=== PATIENT | female | born 1970 | race Caucasian/White ===

== ENCOUNTER 2022-12-24 13:54 | Outpatient (CLI) | payer OTHER, SELFPAY ==
--- NOTE | ~2022-12-24 | XR_ITS ---
Right elbow Technique: AP, oblique, and lateral views were obtained. Clinical History: Pain Findings: No acute fracture or dislocation is seen. Osseous alignment is anatomic. Joint spaces are p reserved. There is no displacement of the fat pads, and soft tissues are unremarkable. Impression: Unremarkable radiographs. Reviewed, dictated and finalized at [facility]. WRAPPER Impression: Unremarkable radiographs.
== END 2022-12-24 13:55 | disposition home or self-care (01) ==
PROVIDERS: PCP Nurse Practitioner
DX: M25.521 Pain in right elbow (principal)
CPT/HCPCS: 73080

== ENCOUNTER 2023-01-28 11:15 | Outpatient (RCR) | payer OTHER, SELFPAY ==
--- NOTE | 2022-12-29 16:50 | PTOPEVAL1 ---
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 States has to be on the computer a lot Bending arm is very painful, straight is less painful than bent. Has had a steroid shot previously that lasted 2 months Reports work environment was previously using a laptop without mouse and now has a mouse and is trying to use left hand on mouse to give right arm a brake Reported Pain Level Pain Score 2: Self Report Assessment PT Clinical Summary Pt presents with c/o right elbow pain states began in June of 2022. Reports she works from home on a laptop without a mouse and has recently corrected this. She also had a steroid shot that helped for 2 months but the pain has returned. Today she demo's increased resting muscle tone and density as noted above and decreased strength of the right lower arm. Pt was educated on additional changes to make to her work space, durable medical equipment and cryotherapy to assist in efficiency of recovery. Pt will benefit from therapy in order to address deficits, reduce pain, and return to prior level of function. Plan of Care Interventions Electrical Stimulation,Hot Pack/Cold Pack,Manual Therapy,Neuro Re-education,Paraffin Bath,Patient/ Caregiver Educati,Therapeutic Activities, Therapeutic Exercise,Self-Care/Home Management, Ultrasound PT Services Indicated Yes Treatment Frequency and 1-2x weekly x 6 weeks Duration These treatments will address the objective and functional deficits as defined above. The patient will be advanced safely and appropriately in order for the patient to progress towards his/her prior level of function. Additional exercises will be introduced and as well as a comprehensive home exercise program upon discharge, if needed, ?to ensure carryover of functional gains achieved in the clinic. This treatment plan has been reviewed and agreement upon by the patient.
--- NOTE | 2023-01-28 14:04 | PTOPDC ---
Assessment and note entered by Celine Wright, PT Assessment Status Discharge Diagnosis right epicondylitis Onset 09/18/22 Subjective Information Pt states she does not feel she has improved any since starting therapy. She has attempted to use the arm brace and this is minimally effective sometimes Reported Pain Level Pain Score 4: Self Report Assessment PT Clinical Summary Pt reports feeling no improvement since initiating therapy 4 weeks ago. She shows improvement in strength testing, and continued approrpiate ROM. Cont to demo adhesions and tone as noted above. However, subjective reports of pain show increased pain compared to evaluation date. Thus patient is being discharged from therapy services to pursue additional treatment through provider.
== END 2023-01-29 10:00 | disposition home or self-care (01) ==
LOC: ANHHIPT 11:15
PROVIDERS: PCP Nurse Practitioner; Visit Provider Internal Medicine Rheumatology
DX: M77.01 Medial epicondylitis, right elbow (principal)
CPT/HCPCS: 97014; 97032; 97035; 97110; 97140; 97161; G0283

== ENCOUNTER 2023-02-13 00:24 | Day surgery (SDC) | payer OTHER, SELFPAY ==
[2023-02-05 15:14] VITALS: BMI 21.5
--- NOTE | 2023-02-12 17:10 | PM.HPGS ---
History of Present Illness History of Present Illness Consent: Risks, benefits, and alternatives have been discussed and questions answered. Patient agrees to proceed with procedure. Chief complaint: neoplasm screening Narrative: Gabe Rodríguez is a 52 year old female Referred for colon cancer screening. Review of Systems Review of Systems: All systems reviewed & are unremarkable except as noted in HPI and below PMFSH Past Medical History Medical History History of endometrial biopsy (05/13/07) hscope EMB HSV-2 seropositive Migraines Miscarriage (03/11/02) Recurrent cold sores Rheumatoid arthritis Shingles Uterine fibroid Vaginal discharge Surgical History Surgical History History of adenoidectomy History of bladder suspension procedure (~2008) History of 1988 2002 History of dilation and curettage (03/11/02) suction d&c--miscarriage History of elbow surgery (~2010) secondary to RA History of endometrial ablation (05/27/07) hscope endometrial ablation--dysmenorrhea/menometrorrhagia History of tubal ligation (~2002) Family History Family History Father Hypertension Mother Hypertension Other Colon polyp maternal aunt Social History Social History Smoking status: Never smoker Alcohol intake: current Drinks per week: 5 Substance use: never Substance use type: does not use Living arrangements: with family Additional living arrangements comments: Occupation/Education: occupation Additional occupation/education comments: real estate Gender identity (if verbalized by the patient): Female Sexual Orientation (if Verbalized by the Patient): Straight or Heterosexual Spiritual care concerns: No Meds Home Medications and Allergies Home Medications Medication Instructions Recorded Confirmed Type acyclovir 400 mg tablet 400 mg PO DAILY PRN other 03/04/22 02/13/23 History adalimumab 40 mg/0.8 mL 40 mg subcut WEEKLY 03/04/22 02/13/23 History subcutaneous syringe kit (Humira) methotrexate sodium 2.5 mg tablet 15 mg PO WEEKLY 03/04/22 02/13/23 History sumatriptan succinate 50 mg tablet 50 mg PO DAILY PRN Migraine 03/04/22 02/13/23 History Headache topiramate 50 mg tablet 50 mg PO DAILY 02/05/23 02/13/23 History Allergies Allergy/AdvReac Type Severity Reaction Status Date / Time adhesive tape AdvReac Other Verified 02/13/23 07:44 Exam Const: General: alert Orientation/consciousness: patient oriented x3 Resp: Auscultation: clear to auscultation bilaterally Cardio: Rhythm: regular rhythm GI: GI Palp: Yes Soft to palpation and No Tenderness to palpation present (GI) Neuro: General: patient oriented x3 Assessment and Plan Assessment and plan (1) Colon cancer screening: Code(s): Z12.11 - Encounter for screening for malignant neoplasm of colon Status: Acute Assessment and Plan: Colonoscopy with possible biopsy or polypectomy or cautery or injection of substances.
[2023-02-13 07:45] VITALS: BP 122/88; PULSE 65; RESP 18; TEMP 36.8; O2SAT 100; BMI 21.7
[2023-02-13] MEDS: LACTATED RINGERS 1,000 ML 150 ML IV CONT (07:57)
--- NOTE | 2023-02-13 08:09 | WPDANESEPPF ---
Anes - Initial Pre Proc Eval Procedure: Operation Date: 02/13/23 08:30 Proposed Procedures p Screening Colonoscopy - Candido Tran MD Date/Time: 02/13/23 08:09 Surgeon: Candido Tran MD Pre Op Diagnosis: neoplasm screening Patient Data Age: 52 Gender: F Height: 1.65 m Weight: 59.3 kg Last Vital Signs Temp 98.3 F 02/13/23 07:45 Pulse 65 02/13/23 07:45 Resp 18 02/13/23 07:45 BP 122/88 02/13/23 07:45 Pulse Ox 100 02/13/23 07:45 O2 Del Method Room Air 02/13/23 07:45 Allergies Allergy/AdvReac Type Severity Reaction Status Date / Time adhesive tape AdvReac Other Verified 02/13/23 07:44 Home Medications Medication Instructions Recorded Confirmed Type acyclovir 400 mg tablet 400 mg PO DAILY PRN other 03/04/22 02/13/23 History adalimumab 40 mg/0.8 mL 40 mg subcut WEEKLY 03/04/22 02/13/23 History subcutaneous syringe kit (Humira) methotrexate sodium 2.5 mg tablet 15 mg PO WEEKLY 03/04/22 02/13/23 History sumatriptan succinate 50 mg tablet 50 mg PO DAILY PRN Migraine 03/04/22 02/13/23 History Headache topiramate 50 mg tablet 50 mg PO DAILY 02/05/23 02/13/23 History Patient hx anesthesia problems: none Family hx anesthesia problems: none Results Review: All pre-operative results and documents have been reviewed as part of the pre-operative evaluation. [facility] Past Medical History Medical History History of endometrial biopsy (05/13/07) hscope EMB HSV-2 seropositive Migraines Miscarriage (03/11/02) Recurrent cold sores Rheumatoid arthritis Shingles Uterine fibroid Vaginal discharge Surgical History Surgical History History of adenoidectomy History of bladder suspension procedure (~2008) History of 1988 2002 History of dilation and curettage (03/11/02) suction d&c--miscarriage History of elbow surgery (~2010) secondary to RA History of endometrial ablation (05/27/07) hscope endometrial ablation--dysmenorrhea/menometrorrhagia History of tubal ligation (~2002) Family History Family History Father Hypertension Mother Hypertension Other Colon polyp maternal aunt Social History Social History Smoking status: Never smoker Alcohol intake: current Drinks per week: 5 Substance use: never Substance use type: does not use Living arrangements: with family Additional living arrangements comments: Occupation/Education: occupation Additional occupation/education comments: real estate Gender identity (if verbalized by the patient): Female Sexual Orientation (if Verbalized by the Patient): Straight or Heterosexual Spiritual care concerns: No Anes - Eval Final PreProcedure Day of Procedure 02/13/23 08:09 Patient weight: normal Heart: regular rate and rhythm Lungs: clear to auscultation Airway: Mallampati scale class II Neurological: alert and oriented Last oral intake: >/= 8 hours ASA classification: II Emergent: no Anesthetic plan: proceed Anesthesia type and monitoring: general GIVS and standard monitoring Results Review: All pre-operative results and documents have been reviewed as part of the pre-operative evaluation. Informed Consent: The patient's anesthetic plan and its attendant risks and benefits were discussed with the patient/family/POA. Questions were solicited and answers provided to the satisfaction of the patient/family/POA.
[2023-02-13 08:40] VITALS: BP 105/63; PULSE 72; RESP 12; O2SAT 100
[2023-02-13 08:50] VITALS: BP 111/74; PULSE 65; RESP 20; O2SAT 100
[2023-02-13 09:00] VITALS: BP 119/69; PULSE 63; RESP 20; O2SAT 100
== END 2023-02-13 09:23 | disposition home or self-care (01) ==
PROVIDERS: PCP Nurse Practitioner; Visit Provider Internal Medicine Gastroenterology
PROC: 0DJD8ZZ Inspection of Lower Intestinal Tract, Via Natural or Artificial Opening Endoscopic (ICD-10-PCS; CPT 45378; principal; 2023-02-13 08:30)
DX: Z12.11 Encounter for screening for malignant neoplasm of colon (principal); M06.9 Rheumatoid arthritis, unspecified; Z79.620 Long term (current) use of immunosuppressive biologic; Z79.631 Long term (current) use of antimetabolite agent
CPT/HCPCS: 45378; J2704; J7120

== ENCOUNTER 2023-05-26 15:07 | Outpatient (CLI) | payer OTHER, SELFPAY ==
[2023-05-26 15:55] LABS: Alanine Aminotransferase 19 U/L (6-35); Albumin Level 4.6 g/dL (3.5-5.1); Alkaline Phosphatase 60 U/L (38-126); Anion Gap 8 mmol/L (8-16); Aspartate Amino Transferase 27 U/L (14-36); Bilirubin,Total 0.6 mg/dL (0.2-1.3); Blood Urea Nitrogen 16 mg/dL (7-17); Calcium 9.4 mg/dL (8.4-10.2); Carbon Dioxide 20 mmol/L (22-30); Chloride 107 mmol/L (98-107); Estimated Glomerular Filt Rate 59; Glucose 95 mg/dL (65-110); Potassium 3.8 mmol/L (3.4-5.0); Sodium 135 mmol/L (137-145)
== END 2023-05-26 15:08 | disposition home or self-care (01) ==
PROVIDERS: PCP Nurse Practitioner; Visit Provider Internal Medicine Rheumatology
DX: E55.9 Vitamin D deficiency, unspecified (principal); Z79.899 Other long term (current) drug therapy
CPT/HCPCS: 36415; 80053; 82306

== ENCOUNTER 2023-08-31 14:30 | Outpatient (RCR) | payer OTHER, SELFPAY ==
--- NOTE | 2023-07-31 10:25 | OPREHPOC ---
Outpatient Therapy Plan of Care This is a Multidisciplinary Plan of Care that may contain components documented by all disciplines (PT, OT, and ST.) PT Problem 1 PT Problem #1 Knowledge Deficit PT Goal 1 Goal Patient will be independent with HEP for core progression Target Visit 4 PT Problem 2 PT Problem #2 Pain PT Goal 1 Goal Patient will report 0/10 pain after sitting greater than 10 minutes Target Visit 8 PT Problem 3 PT Problem #3 Impaired Strength PT Goal 1 Goal Patient will improve justine hip abduction strength to 4/5 to improve lateral stability with gait and functional lifting Target Visit 8 PT Goal 2 Goal Patient will improve justine hip flexion strength to 4 +/5 to improve foot clearance with activity Target Visit 8 PT Problem 4 PT Problem #4 Impaired Gait PT Goal 1 Goal Patient will ambulate with absence of Trendelenburg for long distance walking indicating improved conscious awareness of muscle activation Target Visit 8
--- NOTE | 2023-07-31 10:26 | PTOPEVAL1 ---
Assessment and note entered by Yasmany Julian, PT Evaluation Information Assessment Status Evaluation Diagnosis Chronic midline low back pain, hip weakness, altered gait Onset 2018 Subjective Information Reports that she is getting most of her pain on the backside of her left hip. Says that it feels muscular in nature because she feels she can stretch it. Hurts worse when sitting for a while or riding in the car. Has pain with lifting but pain is mostly sporadic. Sometimes leg will feel numb but not painful. She does have some tailbone pain. She is R handed. Spends a lot of time at this [place]. Feels her left leg is weaker. Assessment PT Clinical Summary Patient has signs and symptoms consistent with lumbar discogenic type symptoms. She has significant hip weakness and difficulty with hip/ lumbar disassociation increasing lumbar strain with ADLs. She will benefit from skilled therapy to establish core progression program and and hip strengthening fro gross functional stability and ADL improvement without pain. Plan of Care Interventions Electrical Stimulation,Gait Training,Manual Therapy,Mechanical Traction,Neuro Re-education, Patient/Caregiver Education,Therapeutic Activities, Therapeutic Exercise PT Services Indicated Yes Treatment Frequency and 2x/week for 4 weeks Duration These treatments will address the objective and functional deficits as defined above. The patient will be advanced safely and appropriately in order for the patient to progress towards his/her prior level of function. Additional exercises will be introduced and as well as a comprehensive home exercise program upon discharge, if needed, ?to ensure carryover of functional gains achieved in the clinic. This treatment plan has been reviewed and agreement upon by the patient.
--- NOTE | 2023-08-31 15:24 | PTOPDC ---
Assessment and note entered by Celine Wright, PT Assessment Status Discharge Diagnosis Chronic midline low back pain, hip weakness, altered gait Onset 2017 Subjective Information Pt went on a car ride 3.5 hours nd didn't get numb-butt , didn't have to stretch and reposition on the car ride. Didn't really have any pain on the car ride either. States is still there but knows what to do with her exercises. Self-percieved improvement: 65% improved Reports has not had lfet leg numbness recently. States feels lef leg is getting stronger, may still be a little weaker but better than it was. Has her heel lifts and are currently in her shoes Is also more awareness of her posture and core with sitting Reported Pain Level Pain Score 1: Self Report Assessment PT Clinical Summary Pt has attended therapy consistently for left hip/ low back pain. She reports feeling 65% improved overall with the only remaining complaint of residual left hip tightness. Pt reports she feels stronger on her LLE and shows nearly equal strength in testing, demos equal ROM BLE with exception of hip extension (not related to strength deficit). She reports pain ranging from 0 -2/10 at worst and improved ability to sit in a car without symptoms. Pt has met all her therapy goals thus is being doscharged at this time. Plan of Care PT Services Indicated No
== END 2023-08-31 15:29 | disposition home or self-care (01) ==
LOC: ANHHIPT 14:30
PROVIDERS: PCP Nurse Practitioner; Visit Provider Internal Medicine Rheumatology
DX: M54.50 Low back pain, unspecified (principal); G89.29 Other chronic pain
CPT/HCPCS: 97110; 97112; 97140; 97161; 97750

== ENCOUNTER 2023-09-04 12:14 | Outpatient (CLI) | payer OTHER, SELFPAY ==
[2023-09-04 12:50] LABS: Basophils Percent Auto 0.2 % (0.2-1.2); Eosinophils Percent Auto 0.3 % (0-4.4); Hematocrit 40.8 % (37.0-47.0); Hemoglobin 13.3 g/dL (12.0-15.0); Immature Granulocyte Absolute 0.06 K/mm3 (0.00-0.031); Immature Granulocyte Percent A 0.6 % (0-0.5); Lymphocytes Absolute Auto 2.11 K/mm3 (0.9-3.2); Lymphocytes Percent Auto 20.6 % (18.3-44.2); Mean Corpuscular HGB Conc 32.6 g/dl (32-36); Mean Corpuscular Hemoglobin 33.2 pg (26-34); Mean Corpuscular Volume 101.7 fl (80-100); Mean Platelet Volume 10.7 fl (7.4-10.4); Monocytes Absolute Auto 0.7 K/mm3 (0.1-0.6); Monocytes Percent Auto 6.9 % (2.6-8.5); Neutrophils Absolute Auto 7.3 K/mm3 (1.3-6.7); Neutrophils Percent Auto 71.4 % (45.5-73.1); Platelet Count Result 265 k/mm3 (150-375); Red Blood Count 4.01 M/mm3 (4.2-5.4); Red Cell Distribution Width 14.8 % (11.5-14.5); White Blood Count 10.3 K/mm3 (4.5-10.0)
[2023-09-04 12:57] LABS: Creatinine Urine 25.3 mg/dL
[2023-09-04 13:04] LABS: Alanine Aminotransferase 19 U/L (6-35); Albumin Level 4.6 g/dL (3.5-5.1); Alkaline Phosphatase 59 U/L (38-126); Aspartate Amino Transferase 34 U/L (14-36); Bilirubin,Total 0.8 mg/dL (0.2-1.3)
[2023-09-04 13:20] LABS: Vitamin D 25 Hydroxy 62.6 ng/mL
== END 2023-09-04 12:15 | disposition home or self-care (01) ==
PROVIDERS: PCP Nurse Practitioner; Visit Provider Internal Medicine Rheumatology
DX: E67.3 Hypervitaminosis D (principal); Z79.899 Other long term (current) drug therapy
CPT/HCPCS: 36415; 80076; 82306; 82570; 85025

== ENCOUNTER → 2023-12-24 10:12 | Outpatient (CLI) | payer OTHER, SELFPAY ==
--- NOTE | ~2023-12-24 | MM_ITS ---
EXAMINATION: MM screening uriah BI w simi HISTORY: Screening TECHNIQUE: Craniocaudal and mediolateral oblique 3-D tomosynthesis images were obtained and synthetic 2-D images were generated. CAD analysis was submitted and interpreted. COMPARISON: No prior mammogram is available for comparison at this institution. BREAST PARENCHYMAL COMPOSITION: Dense: The breasts are heterogeneously dense, which may obscure small masses FINDINGS: There are scattered bilateral breast asymmetries. There are no suspicious calcifications. N o discrete architectural distortion. IMPRESSION: 1. Bilateral breast asymmetries. 2. Recommend comparison to previous outside mammograms. BI-RADS Category 0: Incomplete: Needs additional imaging evaluation. Reviewed, dictated and finalized at location [facility]
== END ==
PROVIDERS: PCP Advanced Practice Midwife; Visit Provider Advanced Practice Midwife
DX: Z12.31 Encounter for screening mammogram for malignant neoplasm of breast (principal); R92.8 Other abnormal and inconclusive findings on diagnostic imaging of breast
CPT/HCPCS: 77063; 77067

== ENCOUNTER 2024-01-25 14:19 | Outpatient (CLI) | payer OTHER, SELFPAY ==
--- NOTE | ~2024-01-25 | MMUS_ITS ---
EXAMINATION: MM diagnostic uriah BI w simi, US breast BI complete HISTORY: Follow-up bilateral breast asymmetries TECHNIQUE: Additional 3-D tomosynthesis images of the breasts were performed and synthetic 2-D images were generated. CAD analysis was submitted and interpreted. High resolution bilateral complete breas t ultrasound was performed. COMPARISON: Comparison to multiple prior studies sequentially, with oldest reviewed study dated 01/2022. BREAST PARENCHYMAL COMPOSITION: Dense: The breasts are heterogeneously dense, which may obscure small masses FINDINGS: MAMMOGRAPHIC FINDINGS: There are persistent bilateral breast asymmetries in both breasts particularly in the upper outer bryn drant of both breasts, without discrete mass. There are no focal areas of architectural distortion or suspicious calcifications. ULTRASOUND: Complete bilateral US of all 4 quadrants of the breasts and retroareolar region was reviewed. Right breast: At 10:00, 4 cm from the nipple there is a 4 mm cyst. No other discrete mass identified in the right breast to suggest malignancy. Left breast: At 12:00 near the areola there is an 8 mm cyst. Also at 12:00 near the areola there is a n oval hypoechoic mass measuring 5 mm with parallel orientation, no internal vascularity and no poste rior features. At 1:00, 6 cm from the nipple there is an irregular shaped hypoechoic mass measuring 8 mm which appears solid, no posterior features and no internal vascularity. Also at 1:00, 6 cm from t he nipple there is a 6 mm cyst. At 1:00, 6 cm from the nipple there is an oval slightly irregular sha ped hypoechoic mass measuring 4 mm without internal vascularity or posterior features. There are mult iple additional cysts of the left breast. IMPRESSION: 1. Irregular shaped hypoechoic left breast mass at 1:00, 6 cm from the nipple. Multiple additional le ft breast masses are identified which are likely benign. 2. Ultrasound-guided left breast biopsy of mass at 1:00, 6 cm from the nipple recommended. 6 month fo llow-up left breast ultrasound recommended for surveillance of additional likely benign left breast m asses. BI-RADS category 4, suspicious findings. Reviewed, dictated and finalized at location [facility]. IMPRESSION: 1. Irregular shaped hypoechoic left breast mass at 1:00, 6 cm from the nipple. Multiple additional left breast masses are identified which are likely benign. 2. Ultrasound-guided left breast biopsy of mass at 1:00, 6 cm from the nipple r ecommended. 6 month follow-up left breast ultrasound recommended for surveillan ce of additional likely benign left breast masses. BI-RADS category 4, suspicious findings.
== END 2024-01-25 14:20 ==
PROVIDERS: PCP Nurse Practitioner; Visit Provider Obstetrics & Gynecology Gynecology
DX: R92.8 Other abnormal and inconclusive findings on diagnostic imaging of breast (principal)
CPT/HCPCS: 76641; 77062; 77066; G0279

== ENCOUNTER 2024-03-23 08:33 | Outpatient (CLI) | payer OTHER, SELFPAY ==
--- NOTE | ~2024-03-23 | MMUS_ITS ---
MM post biopsy invasive LT, US breast biopsy LT w image EXAMINATION: US GUIDED NEEDLE BIOPSY WITH VACUUM ASSISTANCE DATE: 03/23/2024 09:56 CDT INDICATION: Left breast mass seen on prior examination. Ultrasound-guided core biopsy is requested t o evaluate for malignancy. TECHNIQUE AND FINDINGS: The risks and potential benefits of the procedure were discussed with the patient, and written inform ed consent was obtained. After sterile preparation of the left breast, 1% lidocaine was utilized for local anesthesia. 1% lidocaine with epinephrine was used for deep anesthesia. A 10G vacuum-assisted biopsy gun needle was advanced through to the outer edge of the region of inter est from a superior approach utilizing sonographic guidance. A total of 4 tissue core samples were o btained through the lesion. An Inrad tissue marker clip was then placed at the biopsy site. Hemostas is was achieved. The patient tolerated procedure well and there was no evidence of immediate complication. The patien t was given verbal instructions partly is from the department. Left breast mammograms to document ti ssue marker clip placement. The tissue samples were submitted to surgical pathology for histologic an alysis. IMPRESSION: 1. Successful ultrasound-guided vacuum-assisted biopsy of left breast mass with tissue marker placem ent. Please refer to pathology report for histologic analysis. Reviewed, dictated and finalized at location [facility]. IMPRESSION: 1. Successful ultrasound-guided vacuum-assisted biopsy of left breast mass wit h tissue marker placement. Please refer to pathology report for histologic anal ysis.
== END 2024-03-23 08:34 | disposition home or self-care (01) ==
PROVIDERS: PCP Nurse Practitioner; Visit Provider Surgery
DX: R92.8 Other abnormal and inconclusive findings on diagnostic imaging of breast (principal); N63.20 Unspecified lump in the left breast, unspecified quadrant
CPT/HCPCS: 19083; 88305; A4648

== ENCOUNTER 2024-04-27 08:00 | Outpatient (RCR) | payer OTHER, SELFPAY ==
--- NOTE | 2024-03-31 14:31 | PTOPEVAL1 ---
Assessment and note entered by Celine Wright, PT Evaluation Information Assessment Status Evaluation Diagnosis cervical muscle pain Therapy conditions abnormal postures cervicalgia weakness Onset 2-3 weeks ago Subjective Information one or two instances in which neck bothered her but always recovered. 2-3 weeks ago had a two day class, was sitting somewhere for two 8 hours days and all of a sudden right side of neck got really tight to where she can't turn it. It has gotten better but can feel it pull. Sleeping is troublesome, has tried replacing pillows and sometimes lays completely flat without pillow No N/T or pain going into arm hurts both way with stretching down and back Looking down at laptop or phone, laying on her back flat Reported Pain Level Pain Score 4: Self Report Assessment PT Clinical Summary Pt presents with complaints of neck pain R>L. States no traumatic event, was sitting two days in a row x 8 hours for a class and this is when her pain started approx 2-3 weeks ago. Pt demo's multi -level alignment deficits with history of leg length discrepancy, abnormal posture with weak postural muscles, scoliotic curvature lumbar, thoracic, and cervical. Pt also demos's multiple areas of increased muscle tone while at rest with tenderness. Pt will benefit from physical therapy to address deficits, improve discomfort, and return to PLOF. Plan of Care Interventions Electrical Stimulation,Gait Training,Hot Pack/Cold Pack,Manual Therapy,Neuro Re-education,Patient/ Caregiver Educati,Therapeutic Activities, Therapeutic Exercise,Ultrasound,Other Other Interventions Taping, dry needling PT Services Indicated Yes Treatment Frequency and 1-2x weekly x 12 visits Duration These treatments will address the objective and functional deficits as defined above. The patient will be advanced safely and appropriately in order for the patient to progress towards his/her prior level of function. Additional exercises will be introduced and as well as a comprehensive home exercise program upon discharge, if needed, ?to ensure carryover of functional gains achieved in the clinic. This treatment plan has been reviewed and agreement upon by the patient.
--- NOTE | 2024-03-31 14:32 | OPREHPOC ---
Outpatient Therapy Plan of Care This is a Multidisciplinary Plan of Care that may contain components documented by all disciplines (PT, OT, and ST.) PT Problem 1 PT Problem #1 Knowledge Deficit PT Goal 1 Goal Knowledge: Pt will be independent in HEP Pt will verbalize understanding of diagnosis and prognosis Target Visit 6 PT Problem 2 PT Problem #2 Pain PT Goal 1 Goal Pt will report lowest pain rating at 0/10 to show improvement in overall discomfort Target Visit 10 PT Goal 2 Goal Pt will report greatest pain level at 3/10 or less to improve ADLs and activities Target Visit 20 PT Problem 3 PT Problem #3 Impaired Functional Mobil PT Goal 1 Goal Pt will demo appropriate postures in therapy session for 50% of the session without cueing. Target Visit 10 PT Goal 2 Goal Pt will report improved ability to maintain postures during work activities to improve discomfort. Target Visit 20 PT Problem 4 PT Problem #4 Impaired Range of Motion PT Goal 1 Goal Pt will demo ROM cervical spine 75% or greater in all planes, equal L/R, without pain
--- NOTE | 2024-04-27 10:39 | PTOPDC ---
Assessment and note entered by Celine Wright, PT Evaluation Information Assessment Status Discharge Diagnosis cervical muscle pain Onset 2-3 weeks ago Subjective Information one or two instances in which neck bothered her but always recovered. 2-3 weeks ago had a two day class, was sitting somewhere for two 8 hours days and all of a sudden right side of neck got really tight to where she can't turn it. It has gotten better but can feel it pull. Sleeping is troublesome, has tried replacing pillows and sometimes lays completely flat without pillow No N/T or pain going into arm hurts both way with stretching down and back Looking down at laptop or phone, laying on her back flat Reported Pain Level Pain Score 0: Self Report Assessment PT Clinical Summary Pt has attended therapy consistently for her neck pain. She reports she has had 0/10 pain for the last 7-10 days, has been doing her exercises, and is pleased with her progress. She has met all therapy goals with exception of increased ROM in all planes, though her range is functional, equal, and pain-free in all planes. She cont to have some increased tonicity of the levator scapula muscles bilaterally though her overall muscle tonicity and guarding has greatly improved. Pt HEP has been updated, and she has been educated on flare ups and when to return to therapy. Pt has completed her program to her satisfaction and is thus being discharged from therapy at this time. Plan of Care PT Services Indicated No
== END 2024-05-04 09:25 | disposition home or self-care (01) ==
LOC: ANHHIPT 08:00
PROVIDERS: PCP Nurse Practitioner; Visit Provider Nurse Practitioner
DX: M54.2 Cervicalgia (principal)
CPT/HCPCS: 97014; 97110; 97140; 97162; 97530; 97750; G0283

== ENCOUNTER 2024-07-22 10:59 | Outpatient (CLI) | payer OTHER, SELFPAY ==
[2024-07-22 11:28] LABS: Basophils Absolute Auto 0.1 K/mm3 (0.0-0.1); Basophils Percent Auto 1.1 % (0.2-1.2); Eosinophils Absolute Auto 0.1 K/mm3 (0-0.3); Eosinophils Percent Auto 1.5 % (0-4.4); Hematocrit 40.5 % (37.0-47.0); Hemoglobin 13.6 g/dL (12.0-15.0); Immature Granulocyte Absolute 0.03 K/mm3 (0.00-0.031); Immature Granulocyte Percent A 0.5 % (0-0.5); Lymphocytes Absolute Auto 1.82 K/mm3 (0.9-3.2); Lymphocytes Percent Auto 27.5 % (18.3-44.2); Mean Corpuscular HGB Conc 33.6 g/dl (32-36); Mean Corpuscular Hemoglobin 35.3 pg (26-34); Mean Corpuscular Volume 105.2 fl (80-100); Mean Platelet Volume 10.6 fl (7.4-10.4); Monocytes Absolute Auto 0.6 K/mm3 (0.1-0.6); Neutrophils Percent Auto 60.4 % (45.5-73.1); Platelet Count Result 231 k/mm3 (150-375); Red Blood Count 3.85 M/mm3 (4.2-5.4); Red Cell Distribution Width 14.6 % (11.5-14.5); White Blood Count 6.6 K/mm3 (4.5-10.0)
[2024-07-22 11:42] LABS: Alanine Aminotransferase 17 U/L (6-35); Albumin Level 4.4 g/dL (3.5-5.1); Alkaline Phosphatase 55 U/L (38-126); Anion Gap 7 mmol/L (4-12); Aspartate Amino Transferase 27 U/L (14-36); Bilirubin,Total 0.4 mg/dL (0.2-1.3); Blood Urea Nitrogen 12 mg/dL (7-17); Calcium 9.6 mg/dL (8.4-10.2); Carbon Dioxide 29 mmol/L (22-30); Chloride 101 mmol/L (98-107); Estimated Glomerular Filt Rate > 60; Glucose 88 mg/dL (65-110); Potassium 4.2 mmol/L (3.4-5.0); Sodium 137 mmol/L (137-145)
[2024-07-22 12:04] LABS: Hypochromasia 1+; Macrocytosis 2+ (NORMAL); Platelet Estimate Adequate (Adequate); Schistocytes None Seen
== END 2024-07-22 11:00 | disposition home or self-care (01) ==
LOC: ANHLAB 11:01
PROVIDERS: PCP Nurse Practitioner; Visit Provider Internal Medicine Rheumatology
DX: Z79.899 Other long term (current) drug therapy (principal)
CPT/HCPCS: 36415; 80053; 85025

== ENCOUNTER 2024-09-14 09:09 | Outpatient (CLI) | payer OTHER, SELFPAY ==
[2024-09-14 10:11] LABS: Alanine Aminotransferase 22 U/L (6-35); Albumin Level 4.4 g/dL (3.5-5.1); Alkaline Phosphatase 60 U/L (38-126); Anion Gap 4 mmol/L (4-12); Aspartate Amino Transferase 32 U/L (14-36); Bilirubin,Total 0.9 mg/dL (0.2-1.3); Blood Urea Nitrogen 9 mg/dL (7-17); Calcium 8.9 mg/dL (8.4-10.2); Carbon Dioxide 29 mmol/L (22-30); Chloride 103 mmol/L (98-107); Estimated Glomerular Filt Rate > 60; Glucose 79 mg/dL (65-110); Sodium 136 mmol/L (137-145)
[2024-09-14 10:43] LABS: Hemoglobin A1C 5.1 % (<5.7)
[2024-09-14 11:47] LABS: Vitamin D 25 Hydroxy 63.7 ng/mL
== END 2024-09-14 09:10 | disposition home or self-care (01) ==
LOC: ANHLAB 09:11
PROVIDERS: PCP Nurse Practitioner; Visit Provider Obstetrics & Gynecology Gynecology
DX: B37.32 Chronic candidiasis of vulva and vagina (principal)
CPT/HCPCS: 36415; 80053; 82306; 83036

== ENCOUNTER 2024-09-19 10:10 | Outpatient (CLI) | payer OTHER, SELFPAY ==
--- NOTE | ~2024-09-19 | MMUS_ITS ---
EXAMINATION: US breast LT limited, MM diagnostic uriah LT w simi HISTORY: Follow-up left breast mass. Previous benign biopsy. TECHNIQUE: Additional 3-D tomosynthesis images of the left breast were performed and synthetic 2-D im ages were generated. CAD analysis was submitted and interpreted. High resolution Limited left breast ultrasound was performed. COMPARISON: Comparison to multiple prior studies sequentially, with oldest reviewed study dated 02/21. BREAST PARENCHYMAL COMPOSITION: Dense: The breasts are heterogeneously dense, which may obscure small masses FINDINGS: MAMMOGRAPHIC FINDINGS: There are no new masses, calcifications or architectural distortion in the left breast to suggest mal ignancy. There is a tissue marker in the upper outer quadrant of the left breast ULTRASOUND: Limited left breast ultrasound: At 1:00, 6 cm from the nipple there is an oval hypoechoic mass withou t internal vascularity or posterior features measuring 6 x 4 x 3 mm. No internal vascularity. This ma ss is slightly decreased in size compared with prior study and was previously biopsy-proven benign. A t 1:00, 6 cm from the nipple there is a 6 mm cyst. IMPRESSION: 1. Probable benign left breast mass at 1:00, 6 cm from the nipple 2. Recommend 6 month follow-up diagnostic left mammogram and Limited left breast ultrasound BI-RADS category 3, probably benign findings. Reviewed, dictated and finalized at location B. E PLANER TENDER IMPRESSION: 1. Probable benign left breast mass at 1:00, 6 cm from the nipple 2. Recommend 6 month follow-up diagnostic left mammogram and Limited left breas t ultrasound BI-RADS category 3, probably benign findings.
== END 2024-09-19 10:11 | disposition home or self-care (01) ==
LOC: ANHIMG 10:12
PROVIDERS: PCP Nurse Practitioner; Visit Provider Surgery
DX: R92.8 Other abnormal and inconclusive findings on diagnostic imaging of breast (principal); N63.20 Unspecified lump in the left breast, unspecified quadrant
CPT/HCPCS: 76642; 77061; 77065; G0279

== ENCOUNTER 2025-01-18 08:24 | Outpatient (CLI) | payer OTHER, SELFPAY ==
--- NOTE | ~2025-01-18 | DEXA_ITS ---
Bone Density Report Name: AYANNA MOHAMUD Age: 54 Sex: Female Ethnicity: White Date of : 1970 Indication: screening for osteoporosis; inflammatory bowel disease; rheumatoid arthritis; Referring Provider: KRISTIN JOHNSON Study: Bone densitometry was performed. Exam Date: January 18, 2025 Accession number: [id number] Bone Density: Region BMD T-score Z-score Classification AP Spine(L1-L4) 0.982 -0.6 0.3 Normal Femoral Neck (Left) 0.701 -1.3 -0.4 Osteopenia Total Hip (Left) 0.907 -0.3 0.3 Normal Femoral Neck (Right) 0.722 -1.1 -0.2 Osteopenia Total Hip (Right) 0.926 -0.1 0.4 Normal Total Hip Mean 0.917 -0.2 0.4 Normal World Health Organization criteria for BMD impression classify patients as: Normal (T-score at or above -1.0), Osteopenia (T-score between -1.0 and -2.5), or Osteoporosis (T-score at or below -2.5). 10-year Fracture Risk: FRAX not reported because: Premenopausal woman Clinical Information Provided by Patient: Has rheumatoid arthritis Has used the following medications: HRT (i.e. estrogen/hormone therapy), Calcium Has the following medical conditions: Inflammatory bowel diseases Patient maximum height was 65.5 Menopause Age: 54 No regular weight bearing exercise Does not regularly consume dairy products Drinks caffeinated beverages Onset of menses at age 15 Premenopausal Number of children 4 Impression: The patient's bone mass is within expected range for age, gender and ethnicity. Discussion: BONE DENSITY IS WITHIN EXPECTED LIMITS FOR AGE, SEX AND RACE. Bone density is within expected limits for age, sex and race at all sites measured. The patient should follow a healthful lifestyle (good nutrition with adequate calcium and vitamin D, and appropriate weight-bearing exercise). Follow-Up: Consider repeating this study in 2 to 3 years to reassess this patient's status, or sooner if there is some new clinical indication. Reported by: LEXIE on 01/18/2025 9:02:00 AM. Reviewed, dictated and finalized at location [facility]
--- OUTSIDE RECORDS SUMMARY | 2025-01-18 08:40 | XMS_ITS | Clinical Summary ---
Author Organization [facility] Address [facility] [place] [address] Care Team Providers Care Billet Grinder Name Role Phone Komal Austin [facility] Primary Care Provider [phone] Allergies Active Allergy Reactions Criticality Noted Date Comments Tape Itching Low 10/07/2021 Reaction: itchy, Latex Itching Reaction: itchy, Medications HUMIRA 40 MG/0.8ML injection once a week. 9 Active folic acid (FOLVITE) 1 MG tablet Take 1 tablet (1 mg total) by mouth daily. Active loratadine (CLARITIN) 10 MG tablet Take 1 tablet (10 mg total) by mouth daily. Active methotrexate 2.5 MG tablet Take 10 tablets (25 mg total) by mouth. 3 9 Active topiramate (TOPAMAX) 50 MG TabIndications:M igraine without aura and without status migrainosus, not intractable TAKE 1 TABLET BY MOUTH DAILY 90 tablet 3 Active SUMAtriptan (IMITREX) 50 MG tabletIndication s:Migraine without aura and without status migrainosus, not intractable TAKE 1 TABLET BY MOUTH EVERY DAY NEEDED FOR HEADACHE 30 tablet 3 Active clotrimazole-bet amethasone (LOTRISONE) cream Apply topically 2 (two) times daily. 3 Active Estradiol-Noreth indrone Acet 0.5-0.1 MG Tab Take 1 tablet by mouth daily. 3 Active ubrogepant (UBRELVY) 50 MG tabletIndication s:Migraine without aura and without status migrainosus, not intractable Take one at onset of headache and may repeat in 2 hours if needed 10 tablet 5 3 Active montelukast (SINGULAIR) 10 MG tabletIndication s:Allergic rhinitis, unspecified seasonality, unspecified trigger TAKE 1 TABLET BY MOUTH EVERY NIGHT AT BEDTIME 90 tablet 1 4 Active cyclobenzaprine (FLEXERIL) 10 MG tabletIndication s:Cervical muscle pain Take at HS as needed 15 tablet 4 Active Active Problems Problem Noted Date Diagnosed Date Family history of colon cancer 08/08/2022 Herpesvirus infection 04/03/2021 Allergic rhinitis, unspecifi ed seasonality, unspecified trigger 04/03/2021 History of shingles 04/03/2021 Rheumatoid arthritis ([facility] 5 Overview (12/22/2018): Note: Seropositive -- Dr. Crandall Calculus of kidney 03/11/2014 Overview (12/22/2018): Overview: CALCULUS OF KIDNEY Anxiety disorder 09/26/2011 Depression 09/26/2011 Migraine 09/26/2011 Resolved Problems Problem Noted Date Diagnosed Date Resolved Date Situational stress 09/25/2022 3 Immunizations Name Administration Dates Next Due Influenza (Generic) 08/12/2013,09/13/2007 Td (Tenivac) preservative free 07/07/2005 Tdap (Generic) 11/16/2019,08/12/2013 Family History Medical History Relation Comments Breast Cancer Neg Hx Social History Tobacco Use Types Packs/Day Years Used Date Smoking Tobacco: Former Passive Smoke Exposure: Past Smokeless Tobacco: Never Tobacco Cessation:Counseling Given: No Comments:provider to senior living sales counselor Alcohol Use Standard Drinks/Week Comments Yes 0 (1 standard drink = 0.6 oz pur e alcohol) PHQ-2 Answer Date Recorded Patient Health Questionnaire-2 Score 0 02/26/2023 Comments No Sex and Gender Information Value Date Recorded Sex Assigned at Not on file Legal Sex Female 7:01 PM CDT Gender Identity Not on file Sexual Orientation Not on file Last Filed Vital Signs Vital Sign Reading Time Taken Comments Blood Pressure 120/64 03/22/2024 2:54 PM CDT Pulse 64 03/22/2024 2:54 PM CDT Temperature 37.1 C (98.8 F) 03/22/2024 2:54 PM CDT Respiratory Rate 16 09/11/2023 11:0 0 AM CISCO CONSULTANT Oxygen Saturation 99% 03/22/2024 2:54 PM CDT Inhaled Oxygen Concentration - - Weight 61.1 kg (134 lb 11.2 oz) 03/22/2024 2:54 PM CDT Height 166.4 cm (5' 5.5 ) 03/22/2024 2:54 PM CDT Body Mass Index 22.07 03/22/2024 2:54 PM CDT Plan of Treatment Health Maintenance Due Date Last Done Comments Cervical Cancer Screening Pa p Smear (Age 30 to 64) Every 3 Years 1972 Hepatitis C 1990 Hepatitis B Vaccines (1 of 3 - 19+ 3-dose series) 1991 Cervical Cancer Screening Pa p with HPV Testing (Age 30 to 64) Every 5 Years 2002 Cervical Cancer Screening with HPV 2002 Zoster Vaccines (1 of 2) 2022 Annual Physical 08/08/2023 08/08/2022, 04/03/2021 COVID-19 Vaccine (1 - 2023-2 5 season) 2024 Influenza Adult (#1) 2024 08/12/2013, 09/13/2007 PHQ-2 (Physician Ambler) 10/26/2024 02/26/2023 Mammogram Screening 03/23/2026 03/23/2024, 01/25/2024, 08/29/2022 DTaP, Tdap and Td Vaccines ( 3 - Td or Tdap) 11/16/2029 11/16/2019, 08/12/2013, 07/07/2005 Colorectal Cancer Screening Colonoscopy (10 Years) 02/13/2033 02/13/2023 Colorectal Cancer Screening FIT/FOBT (1 Year) Discontinued 01/02/2020 Meningococcal B Vaccine Aged Out No l onger eligible based on patient's age to complete this topic Meningococcal Vaccine Aged Out No ban alicai eligible based on patient's age to complete this topic Pneumococcal Vaccine: Pediatrics (0 to 5 Years) and At-Risk Patients (6 to 64 Years) Aged Out No longer eligible based on patient's age to complete this topic RSV Immunizations Under 20 Months Aged Out No longer eligible based on patient's age to complete this topic Procedures Procedure Name Priority Date/Time Associated Diagnosis Comments MAMMOGRAM GENERIC (SCAN ORDER) 03/23/2024 COLONOSCOPY GENERIC (SCAN ORDER) 02/13/2023 FECAL BLOOD FIT SCREEN Routine 01/02/2020 11:30 AM CDT from Last 3 Months or Most Recently Relevant to Health Maintenance Results * MAMMOGRAM GENERIC (SCAN ORDER) (03/23/2024) Anatomical Region Laterality Modality Other 03/23/2024 us [facility] Scanned SCANNING Final Resu lt * COLONOSCOPY GENERIC (02/13/2023) 02/13/2023 us [facility] Scanned SCANNING Final Resu lt * FECAL BLOOD FIT SCREEN (01/02/2020 11:30 AM CDT) FECAL BLOOD FIT SCRN NEGATIVE NEGATIVE 01/09/2020 10:23 AM CDT [facility] 01/02/2020 11:3 0 AM CDT Gladys Marr MD BODY FLUIDS AND STOOLS O RDERABLES Final Result [facility] [address] [place] [address], from Last 3 Months or Most Recently Relevant to Health Maintenance Insurance GENERIC - MEDICAID [facility] Care Teams Billet Grinder Relationship Specialty Start Date End Date Komal Austin FNP [address] [place] [address] [place] [address] PCP - General Nurse Practitioner Family 09/20/18
--- OUTSIDE RECORDS SUMMARY | 2025-01-18 08:40 | XMS_ITS | Encounter Summary ---
Author Organization [facility] Address [address] [place] [address] Phone Care Team Providers Care Gaming Director Name Role Phone Eric Boyce MD Primary Care Provider [phone] Encounter Details Date Type Department Care Team (Late st Contact Info) Description 07/22/2024 Orders Only [facility] Scanning, Provider Social History Tobacco Use Types Packs/Day Years Used Date Smoking Tobacco: Former Smokeless Tobacco: Never Personal Safety Answer Date Recorded Getting School Help Needed Not on file 11/13 Comments Unknown Sex and Gender Information Value Date Recorded Sex Assigned at Not on file Legal Sex Female 11:32 PM RECONNAISSANCE MAN Gender Identity Female 04/02/2021 7:34 AM CDT Sexual Orientation Straight 04/02/2021 7: 34 AM CDT documented as of this encounter Plan of Treatment Not on file documented as of this encounter Procedures Procedure Name Priority Date/Time Associated Diagnosis Comments SCAN - LABS 07/22/2024 documented in this encounter Results * SCAN - LABS (07/22/2024) us Provider Scanning Final Result documented in this encounter Visit Diagnoses Not on filedocumented in this encounter Care Teams Gaming Director Relationship Specialty Start Date End Date Eric Boyce MD [address] [place] [address] [place] [address] PCP - General Family Practice 02/19/18 documented as of this encounter
--- OUTSIDE RECORDS SUMMARY | 2025-01-18 08:40 | XMS_ITS | Encounter Summary ---
Author Organization [facility] Address [address] [place] [address] Care Team Providers Care Baker Doughnut Name Role Phone Komal Austin Primary Care Provider [phone] Encounter Details Date Type Department Care Team (Late st Contact Info) Description 11/19/2022 [employer] Message Enc [facility] [address] [place] [address] Komal Austin FNP [address] [place] [address] Anxiety Social History Tobacco Use Types Packs/Day Years Used Date Smoking Tobacco: Former Smokeless Tobacco: Never Comments:provider to staff genetic counselor Alcohol Use Standard Drinks/Week Comments Yes 0 (1 standard drink = 0.6 oz pur e alcohol) PHQ-2 Answer Date Recorded Patient Health Questionnaire-2 Score 0 10/15/2022 Comments No Sex and Gender Information Value Date Recorded Sex Assigned at Not on file Legal Sex Female 7:01 PM CDT Gender Identity Not on file Sexual Orientation Not on file documented as of this encounter Progress Notes * TESSA Blue - 11/19/2022 10:15 AM CST If she is ready to discontinue, have her decrease to every other day x 10 days and then stop takingit. Follow up if any sx recur S BREAKER documented in this encounter Plan of Treatment Not on file documented as of this encounter Visit Diagnoses Not on filedocumented in this encounter Additional Health Concerns Infection Onset Date Last Indicated Resolved Time COVID-19 Rule Out 02/26/2023 02/26/2023 02/26/2023 8:04 AM CDT Assessment Noted Time PHQ-9 Depression Total Score: 0 10/15/20 22 8:35 AM GLASS BREAKER documented as of this encounter Care Teams Baker Doughnut Relationship Specialty Start Date End Date Komal Austin FNP [address] [place] [address] [place] [address] PCP - General Nurse Practitioner Family 09/20/18 documented as of this encounter
--- OUTSIDE RECORDS SUMMARY | 2025-01-18 08:40 | XMS_ITS | Encounter Summary ---
Author Organization [facility] Address [address] [place] [address] Care Team Providers Care Gas Transfer Operator Name Role Phone Komal Austin Primary Care Provider [phone] Encounter Details Date Type Department Care Team (Late st Contact Info) Description 06/22/2021 [employer] Message Enc [facility] [address] [place] [address] Komal Austin FNP [address] [place] [address] Medication Questions Social History Tobacco Use Types Packs/Day Years Used Date Smoking Tobacco: Former Smokeless Tobacco: Never Comments:provider to food counselor Alcohol Use Standard Drinks/Week Comments Yes 0 (1 standard drink = 0.6 oz pur e alcohol) PHQ-2 Answer Date Recorded PHQ-2 Score - If the patient scores above 3, please move on to questions 3-9 0 04/03/2021 Comments No Sex and Gender Information Value Date Recorded Sex Assigned at Not on file Legal Sex Female 7:01 PM CDT Gender Identity Not on file Sexual Orientation Not on file documented as of this encounter Progress Notes * TESSA Phipps - 06/24/2021 8:15 AM CDT I already addressed this. * TESSA Phipps - 06/24/2021 8:14 AM CDT Fine to give er #10 of the sumatriptan. No refill * Sirena Rothman LPN - 06/24/2021 8:10 AM CDT Last refilled on 02/08/2021 #24 by she no longer see's him. Last OV wit Jessica 04/03/2021. Ok to refill? Judi please review since Jessica is out of the office. * Sirena Rothman LPN - 06/24/2021 8:09 AM CDTFrom: Nirali Rodríguez To: Komal Austin Sent: 06/22/2021 7:17 PM CDT Subject: Medication Questions I am running low on Sumatriptin for my migraines. Can you refill this for me? Thank you documented in this encounter Plan of Treatment Not on file documented as of this encounter Visit Diagnoses Not on filedocumented in this encounter Additional Health Concerns Infection Onset Date Last Indicated Resolved Time COVID-19 Rule Out 02/26/2023 02/26/2023 02/26/2023 8:04 AM CDT Assessment Noted Time PHQ-9 Depression Total Score: 0 04/03/20 21 10:08 AM CDT documented as of this encounter Care Teams Gas Transfer Operator Relationship Specialty Start Date End Date Komal Austin FNP [address] [place] [address] [place] [address] PCP - General Nurse Practitioner Family 09/20/18 documented as of this encounter
--- OUTSIDE RECORDS SUMMARY | 2025-01-18 08:40 | XMS_ITS | Encounter Summary ---
Author Organization [facility] Address [address] [place] [address] Care Team Providers Care Comb Winder Name Role Phone Komal Austin Primary Care Provider [phone] Encounter Details Date Type Department Care Team (Late st Contact Info) Description 09/15/2022 [employer] Message Enc [facility] [address] [place] [address] Komal Austin FNP [address] [place] [address] situational/hormonal anxiety Social History Tobacco Use Types Packs/Day Years Used Date Smoking Tobacco: Former Smokeless Tobacco: Never Comments:provider to job placement counselor Alcohol Use Standard Drinks/Week Comments Yes 0 (1 standard drink = 0.6 oz pur e alcohol) PHQ-2 Answer Date Recorded PHQ-2 Score - If the patient scores above 3, please move on to questions 3-9 0 08/08/2022 Comments No Sex and Gender Information Value Date Recorded Sex Assigned at Not on file Legal Sex Female 7:01 PM CDT Gender Identity Not on file Sexual Orientation Not on file COVID-19 Exposure Response Date Recorded In the last 10 days, have yo u been in contact with someone who was confirmed or suspected to have Coronavirus/COVID-19? No / Unsure 08/29/2022 9:17 AM CDT documented as of this encounter Progress Notes * Ness Pizarro LPN - 09/30/2022 2:42 PM CST Please review/advise. IFIED PEER SPECIALIST * TESSA Blue - 09/26/2022 4:57 PM CST She can use her Imitrex as needed for the headache. Let me know if it does not resolve over the weekend. She can take Tylenol extra strength 2 tablets every 6 hours between Imitrex doses to see if that helps. IFIED PEER SPECIALIST * Ness Pizarro LPN - 09/26/2022 3:32 PM CST Please review/advise. Pt. Had OV yesterday. IFIED PEER SPECIALIST * TESSA Blue - 09/24/2022 12:19 PM CST Ok to keep ov scheduled tomorrow IFIED PEER SPECIALIST * Carole Abel RN - 09/16/2022 8:57 AM CST Rescheduled to Dec. at 3:00. IFIED PEER SPECIALIST * Carole Abel RN - 09/16/2022 8:40 AM CST Pt scheduled appt.for Monday 09/24 with Jessica. IFIED PEER SPECIALIST * Carole Abel RN - 09/15/2022 10:45 AM CST Please note and advise. IFIED PEER SPECIALIST documented in this encounter Plan of Treatment Not on file documented as of this encounter Visit Diagnoses Not on filedocumented in this encounter Additional Health Concerns Infection Onset Date Last Indicated Resolved Time COVID-19 Rule Out 02/26/2023 02/26/2023 02/26/2023 8:04 AM CDT Assessment Noted Time PHQ-9 Depression Total Score: 0 04/03/20 21 10:08 AM CDT documented as of this encounter Care Teams Comb Winder Relationship Specialty Start Date End Date Komal Austin FNP [address] [place] [address] [place] [address] PCP - General Nurse Practitioner Family 09/20/18 documented as of this encounter
--- OUTSIDE RECORDS SUMMARY | 2025-01-18 08:40 | XMS_ITS | Clinical Summary ---
Author Organization [facility] Address [address] [place] [address] Care Team Providers Care Graphite Grinder Name Role Phone Eric Boyce MD Primary Care Provider [phone] Allergies Active Allergy Reactions Criticality Noted Date Comments Adhesive Itching Low 10/07/2021 Reaction: itchy, Adhesive Tape-Silicones Itching Reaction: itchy, Latex Itching Reaction: itchy, Medications predniSONE (DELTASONE) 5 mg tablet as needed Active rizatriptan (MAXALT) 10 mg tablet Active fluconazole (DIFLUCAN) 150 mg tablet Take 1 tablet (150 mg total) by mouth daily 2 Active Ubrelvy 50 mg tablet 4 Active estradiol-noret hindrone (ACTIVELLA) 0.5-0.1 mg per tablet 4 Active folic acid (FOLVITE) 1 mg tabletIndicatio ns:Seropositive rheumatoid arthritis (HCC) TAKE 1 TABLET BY MOUTH ONCE DAILY 90 tablet 3 4 Active methotrexate 2.5 mg tabletIndicatio ns:Rheumatoid Arthritis TAKE 10 TABLETS (25 MG TOTAL) BY MOUTH EVERY 7 DAYS TAKE 5 TABLETS IN THE MORNING AND 5 TABLETS IN THE EVENING ON SATURDAYS 120 tablet 5 Active adalimumab-adaz 40 mg/0.4 mL pen injector Inject 40 mg under the skin once a week 4.8 mL 1 5 Active Active Problems Problem Noted Date Diagnosed Date Migraine with aura 05/09/2014 Overview (01/29/2017): [facility] Calculus of kidney 03/11/2014 Overview (01/29/2017): CALCULUS OF KIDNEY Seropositive rheumatoid arthritis 03/11/2014 Overview (01/29/2017): SEROPOSITIVE RHEUMATOID ARTHRITIS Closed fracture of bone 09/10/2012 Arthralgia of elbow 05/21/2011 Encounters Date Type Department Care Team Description 12/13/2024 Telephone [facility] [address] [place] [address] Cintia Sharma RPh Prior Auth (Charles) from Last 3 Months Immunizations Immunization Administration Dates Next Due Influenza, Trivalent, IM (MDV) 09/13/2007 Surgical History Surgery Date Site/Laterality Comments KNEE ARTHROSCOPY W/ PLICA EXCISION Medical History Medical History Date Comments Rheumatoid arthritis (HCC) Migraine Kidney stone Family History Medical History Relation Name Comments Rheum arthritis Father Relation Name Status Comments Father Social History Tobacco Use Types Packs/Day Years Used Date Smoking Tobacco: Former Smokeless Tobacco: Never Tobacco Cessation:Counseling Given: Not Answered Personal Safety Answer Date Recorded Getting School Help Needed Not on file 11/13 Comments Unknown Sex and Gender Information Value Date Recorded Sex Assigned at Not on file Legal Sex Female 11:32 PM JOURNEYMAN PRESSMAN Gender Identity Female 04/02/2021 7:34 AM CDT Sexual Orientation Straight 04/02/2021 7: 34 AM CDT Obstetrics History Last Filed Vital Signs Vital Sign Reading Time Taken Comments Blood Pressure 126/86 06/13/2024 8:25 AM CDT Pulse 66 06/13/2024 8:25 AM CDT Temperature 36.7 C (98 F) 06/13/2024 8:25 AM CDT Respiratory Rate - - Oxygen Saturation - - Inhaled Oxygen Concentration - - Weight 59.4 kg (131 lb) 06/13/2024 8:25 AM CDT Height 165.1 cm (5' 5 ) 06/13/2024 8:25 AM CDT Body Mass Index 21.8 06/13/2024 8:25 AM CDT Plan of Treatment Health Maintenance Due Date Last Done Comments Cervical Cancer Screening 1972 Colon Cancer Screening-Colonoscopy 1972 Depression Screening 1972 Hepatitis C Screening 1972 Hepatitis B Screening 1990 Regular Well Visit/Exam 18-64 1990 Pneumococcal vaccine <65 (1 of 2 - PCV) 1991 Zoster Vaccine (1 of 2) 1991 Breast Cancer Screening-Mammogram 08/29/2023 022 Influenza Vaccine (#1) 2024 08/12/2013, 2006 DTaP/Tdap/Td Vaccine (3 - Td or Tdap) 11/16/2029 11/16/2019, 08/12/2013, 07/07/2005 Insurance [facility] Care Teams Graphite Grinder Relationship Specialty Start Date End Date Eric Boyce MD [address] [place] [address] [place] [address] PCP - General Family Practice 02/19/18
--- OUTSIDE RECORDS SUMMARY | 2025-01-18 08:40 | XMS_ITS | Referral Summary ---
Author Organization [facility] Address [address] [place] [address] Care Team Providers Care Crusher Tender Name Role Phone Eric Boyce MD Primary Care Provider [phone] Encounters Date Type Department Care Team Description 12/13/2024 Telephone [facility] [address] [place] [address] Cintia Sharma [facility] Prior Auth (Hyrimoz) from Last 3 Months Allergies Active Allergy Reactions Criticality Noted Date [...] Date Migraine with aura 05/09/2014 Overview (01/29/2017): [facility] MIGRNE WO [facility] MGRN Calculus of kidney 03/11/2014 Overview (01/29/2017): CALCULUS OF KIDNEY Seropositive rheumatoid arthritis 03/11/2014 Overview (01/29/2017): SEROPOSITIVE RHEUMATOID ARTHRITIS Closed fracture of bone 09/10/2012 Arthralgia of elbow 05/21/2011 Immunizations Immunization Administration Dates Next Due Influenza, Trivalent, IM (MDV) 09/13/2007 Social History Tobacco Use Types Packs/Day Years Used Date Smoking Tobacco: Former Smokeless Tobacco: Never Tobacco Cessation:Counseling Given: Not Answered Personal Safety Answer Date Recorded Getting School Help Needed Not on file 11/13 Comments Unknown Sex and Gender Information Value Date Recorded Sex Assigned at Not on file Legal Sex Female 11:32 PM ECCLESIASTICAL WORKER Gender Identity Female 04/02/2021 7:34 AM CDT Sexual Orientation Straight 04/02/2021 7: 34 AM CDT Last Filed Vital Signs Vital Sign Reading [...] 06/13/2024 8:25 AM CDT Plan of Treatment Not on file Insurance [facility] HMO/PPO Address: [address] [address] Care Teams Crusher Tender Relationship Specialty Start Date End Date Eric Boyce MD [address] [place] [address] [place] [address] PCP - General Family Practice 02/19/18
--- OUTSIDE RECORDS SUMMARY | 2025-01-18 08:40 | XMS_ITS | Encounter Summary ---
Author Organization [facility] Address [address] [place] [address] Care Team Providers Care Dry Cleaner Hand Name Role Phone Kmoal Austin Primary Care Provider [phone] Encounter Details Date Type Department Care Team (Late st Contact Info) Description 03/16/2024 Xenon Archart Message Enc [facility] [address] [place] [address] Komal Austin FNP [address] [place] [address] Neck pain Social History Tobacco Use Types Packs/Day Years Used Date Smoking Tobacco: Former Passive Smoke Exposure: Past Smokeless Tobacco: Never Comments:provider to housing counselor Alcohol Use Standard Drinks/Week Comments Yes 0 (1 standard drink = 0.6 oz pur e alcohol) PHQ-2 Answer Date Recorded Patient Health Questionnaire-2 Score 0 02/26/2023 Comments No Sex and Gender Information Value Date Recorded Sex Assigned at Not on file Legal Sex Female 7:01 PM CDT Gender Identity Not on file Sexual Orientation Not on file documented as of this encounter Plan of Treatment Not on file documented as of this encounter Visit Diagnoses Not on filedocumented in this encounter Additional Health Concerns Assessment Noted Time PHQ-9 Depression Total Score: 0 10/15/20 22 8:35 AM MICA WASHER GLUER documented as of this encounter Care Teams Dry Cleaner Hand Relationship Specialty Start Date End Date Komal Austin FNP [address] [place] [address] PCP - General Nurse Practitioner Family 09/20/18 documented as of this encounter
--- OUTSIDE RECORDS SUMMARY | 2025-01-18 08:40 | XMS_ITS | Encounter Summary ---
Author Organization [facility] Address [address] [place] [address] Care Team Providers Care Automatic Fabric Cutter Name Role Phone Komal Austin [facility] Primary Care Provider [phone] Encounter Details Date Type Department Care Team (Late st Contact Info) Description 08/08/2022 [employer] Message Enc [facility] [address] [place] [address] Komal Austin [facility] [address] [place] [address] Genetic testing information on my aunt Social History Tobacco Use Types Packs/Day Years Used Date Smoking Tobacco: Former Smokeless Tobacco: Never Comments:provider to certified substance abuse counselor Alcohol Use Standard Drinks/Week Comments Yes [...] suspected to have Coronavirus/COVID-19? No / Unsure 08/08/2022 10:47 AM CDT documented as of this encounter Progress Notes * Carole Abel RN - 08/09/2022 7:48 AM CDT Please note. * Ness Pizarro LPN - 08/08/2022 2:18 PM CDT Please review/advise. documented in this encounter Plan of Treatment Not on file documented as of this encounter Visit Diagnoses Not on filedocumented in this encounter Additional Health Concerns Infection Onset Date Last Indicated Resolved Time COVID-19 Rule Out 02/26/2023 02/26/2023 02/26/2023 8:04 AM CDT Assessment Noted Time PHQ-9 Depression Total Score: 0 04/03/20 21 10:08 AM CDT documented as of this encounter Care Teams Automatic Fabric Cutter Relationship Specialty Start Date End Date Komal Austin FNP [address] [place] [address] [place] [address] PCP - General Nurse Practitioner Family 09/20/18 documented as of this encounter
--- OUTSIDE RECORDS SUMMARY | 2025-01-18 08:40 | XMS_ITS | Encounter Summary ---
Author Organization [facility] Address [address] [place] [address] Phone Care Team Providers Care Tray Packer Name Role Phone Eric Boyce MD Primary Care Provider [phone] Encounter Details Date Type Department Care Team (Late st Contact Info) Description 10/24/2019 Orders Only [facility] Scanning, Provider Social History Tobacco Use Types Packs/Day Years Used Date Smoking Tobacco: Former Comments Unknown Sex and Gender Information Value Date Recorded Sex Assigned at Not on file Legal Sex Female 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 Gender Identity Female 04/02/2021 7:34 AM CDT Sexual Orientation Straight 04/02/2021 7: 34 AM CDT documented as of this encounter Plan of Treatment Not on file documented as of this encounter Procedures Procedure Name Priority Date/Time Associated Diagnosis Comments SCAN - LABS 10/24/2019 documented in this encounter Results * SCAN - LABS (10/24/2019) us Provider Scanning Final Result documented in this encounter Visit Diagnoses Not on filedocumented in this encounter Care Teams Tray Packer Relationship Specialty Start Date End Date Eric Boyce MD [address] [place] [address] [place] [address] PCP - General Family Practice 02/19/18 documented as of this encounter
== END 2025-01-18 08:25 | disposition home or self-care (01) ==
PROVIDERS: PCP Nurse Practitioner; Visit Provider Nurse Practitioner
DX: M85.852 Other specified disorders of bone density and structure, left thigh (principal); M85.851 Other specified disorders of bone density and structure, right thigh; Z13.820 Encounter for screening for osteoporosis; Z78.0 Asymptomatic menopausal state
CPT/HCPCS: 77080

== ENCOUNTER 2025-02-27 10:31 | Outpatient (CLI) | payer OTHER, SELFPAY ==
--- NOTE | ~2025-02-27 | MMUS_ITS ---
EXAMINATION: MM diagnostic uriah BI w simi, US breast LT complete HISTORY: Follow-up left breast mass TECHNIQUE: Additional 3-D tomosynthesis images of the breasts were performed and synthetic 2-D images were generated. CAD analysis was submitted and interpreted. High resolution complete left breast ult rasound was performed. COMPARISON: Comparison to multiple prior studies sequentially, with oldest reviewed study dated 08/26. BREAST PARENCHYMAL COMPOSITION: Dense: The breasts are heterogeneously dense, which may obscure small masses FINDINGS: MAMMOGRAPHIC FINDINGS: The breasts are stable. No new masses, calcifications or architectural distortion in either breast to suggest malignancy. ULTRASOUND: Complete US of all 4 quadrants of the left breast/s and retroareolar region was reviewed. At 1:00, 6 cm from the nipple there is an oval slightly lobulated hypoechoic mass measuring 7 x 5 x 5 mm without internal vascularity or significant posterior features. This mass has changed morphologically with i ncreased internal echoes, increased in size and slightly irregular margins compared with prior study. Additional simple cyst are identified in the left breast including a 6 mm cyst at 1:00, 6 cm from th e nipple. IMPRESSION: 1. Altered morphology of 7 mm left breast mass at 1:00, 6 cm from the nipple. 2. Ultrasound-guided left breast biopsy recommended. BI-RADS category 4, suspicious findings. Reviewed, dictated and finalized at location A. IMPRESSION: 1. Altered morphology of 7 mm left breast mass at 1:00, 6 cm from the nipple. 2. Ultrasound-guided left breast biopsy recommended. BI-RADS category 4, suspicious findings.
--- OUTSIDE RECORDS SUMMARY | 2025-02-27 11:24 | XMS_ITS | Clinical Summary ---
Author Organization [facility] Address [address] [place] [address] Care Team Providers Care Wagon Driver Salesperson Name Role Phone Eric Boyce MD Primary Care Provider [phone] Allergies Active Allergy Reactions Criticality Noted Date Comments Adhesive Itching Low 10/07/2021 Reaction: itchy, Adhesive Tape-Silicones Itching Reaction: itchy, Latex Itching Reaction: itchy, Medications predniSONE (DELTASONE) 5 mg tablet as needed Active rizatriptan (MAXALT) 10 mg tablet Active fluconazole (DIFLUCAN) 150 mg tablet Take 1 tablet (150 mg total) by mouth daily 03/04/20 22 Active Ubrelvy 50 mg tablet 05/11/20 24 Active estradiol-nore thindrone (ACTIVELLA) 0.5-0.1 mg per tablet 06/12/20 24 Active folic acid (FOLVITE) 1 mg tabletIndicati ons:Seropositi ve rheumatoid arthritis (HCC) TAKE 1 TABLET BY MOUTH ONCE DAILY 90 tablet 3 06/30/20 24 Active adalimumab-ada z 40 mg/0.4 mL pen injector Inject 40 mg under the skin once a week 4.8 mL 1 12/08/19 25 Active methotrexate 2.5 mg tabletIndicati ons:Rheumatoid Arthritis TAKE 10 TABLETS (25 MG TOTAL) BY MOUTH EVERY 7 DAYS TAKE 5 TABLETS IN THE MORNING AND 5 TABLETS IN THE EVENING ON SATURDAYS 40 tablet 02/14/20 25 Active methotrexate 2.5 mg tabletIndicati ons:Rheumatoid Arthritis TAKE 10 TABLETS (25 MG TOTAL) BY MOUTH EVERY 7 DAYS TAKE 5 TABLETS IN THE MORNING AND 5 TABLETS IN THE EVENING ON SATURDAYS 120 tablet 11/22/19 25 025 Discontinued Active Problems Problem Noted Date Diagnosed Date Migraine with aura 05/09/2014 Overview (01/29/2017): [facility] MIGRNE WO [facility] MGRN Calculus of kidney 03/11/2014 Overview (01/29/2017): CALCULUS OF KIDNEY Seropositive rheumatoid arthritis 03/11/2014 Overview (01/29/2017): SEROPOSITIVE RHEUMATOID ARTHRITIS Closed fracture of bone 09/10/2012 Arthralgia of elbow 05/21/2011 Encounters Date Type Department Care Team Description 12/13/2024 Telephone [facility] [address] [place] [address] Cintia Sharma [facility] Prior Auth (Charles) from Last 3 Months [...] on file Legal Sex Female 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 Gender Identity Female 04/02/2021 7:34 AM CDT [...] Breast Cancer Screening-Mammogram 08/29/2023 022 Influenza Vaccine (Season Ended) 2025 08/12/20 13, 09/13/2007 DTaP/Tdap/Td Vaccine (3 - Td or Tdap) 11/16/2029 11/16/2019, 08/12/2013, 07/07/2005 Insurance [facility] Care Teams Wagon Driver Salesperson Relationship Specialty Start Date End Date Eric Boyce MD [address] [place] [address] [place] [address] PCP - General Family Practice 02/19/18
--- OUTSIDE RECORDS SUMMARY | 2025-02-27 11:24 | XMS_ITS | Referral Summary ---
Author Organization [facility] Address [address] [place] [address] Care Team Providers Care Bike Designer Name Role Phone Eric Boyce MD Primary Care Provider [phone] Encounters Date Type Department Care Team Description 12/13/2024 Telephone [facility] [address] [place] [address] Cintia Sh[facility] Prior Auth (Hyrimoz) from Last 3 Months [...] Date Migraine with aura 05/09/2014 [facility]01/29/2017[facility] Calculus of kidney 03/11/2014 [...] on file Legal Sex Female 11:32 PM DRILLING FIELD PROFESSIONAL Gender Identity Female 04/02/2021 7:34 AM CDT [...] Plan of Treatment Not on file Insurance [facility] Member Subscriber Plan / Payer (Ef fective 2018-Present) Name:Nirali Rodríguez Relation to Subscriber:Self Name:Nirali Rodríguez Payer ID:[id number] (NAIC) Group ID:Not on file Type:MEDICAID RISK OTHER Address: [address] [facility] Care Teams Bike Designer Relationship Specialty Start Date End Date Eric Boyce MD [address] [place] [address] [place] [address] PCP - General Family Practice 02/19/18
--- OUTSIDE RECORDS SUMMARY | 2025-02-27 11:24 | XMS_ITS | Encounter Summary ---
Author Organization 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
--- OUTSIDE RECORDS SUMMARY | 2025-02-27 11:24 | XMS_ITS | Encounter Summary ---
Author Organization [facility] Address [address] [place] [address] Phone Care Team Providers Care Chute Worker Name Role Phone Eric Boyce MD Primary Care Provider Encounter Details Date Type Department Care Team [...] on file Legal Sex Female 11:32 PM REFUELING RAMP ATTENDANT Gender Identity Female 04/02/2021 7:34 AM CDT [...] on filedocumented in this encounter Care Teams Chute Worker Relationship Specialty Start Date End Date Eric Boyce MD [address] [place] [address] [place] [address] PCP - General Family Practice 02/19/18 documented as of this encounter
== END 2025-02-27 10:32 | disposition home or self-care (01) ==
LOC: ANHIMG 10:32
PROVIDERS: PCP Nurse Practitioner; Visit Provider Surgery
DX: R92.8 Other abnormal and inconclusive findings on diagnostic imaging of breast (principal); N63.21 Unspecified lump in the left breast, upper outer quadrant
CPT/HCPCS: 76641; 77062; 77066; G0279

== ENCOUNTER 2025-02-27 12:12 | Outpatient (CLI) | payer OTHER, SELFPAY ==
--- OUTSIDE RECORDS SUMMARY | 2025-02-27 12:40 | XMS_ITS | Encounter Summary ---
Author Organization [facility] Address [address] [place] [address] Care Team Providers Care Clinical Technologist Name Role Phone Komal Austin Primary Care Provider [phone] Encounter Details Date Type Department Care Team (Late st Contact Info) Description 06/22/2021 [employer] Mobile[employer] Message Enc [facility] [address] [place] [address] Komal Austin FNP [address] [place] [address] Medication Questions Social History Tobacco Use Types Packs/Day Years Used Date Smoking Tobacco: Former Smokeless Tobacco: Never Comments:provider to service counselor Alcohol Use Standard Drinks/Week Comments Yes [...] documented as of this encounter Care Teams Clinical Technologist Relationship Specialty Start Date End Date Komal Austin FNP [address] [place] [address] [place] [address] PCP - General Nurse Practitioner Family 09/20/18 documented as of this encounter
--- OUTSIDE RECORDS SUMMARY | 2025-02-27 12:40 | XMS_ITS | Encounter Summary ---
Author Organization [facility] Address [address] [place] [address] Care Team Providers Care Soils Analyst Name Role Phone Komal Austin Primary Care Provider [phone] Encounter Details Date Type Department Care Team (Late st Contact Info) Description 09/15/2022 Cleot Message Enc [facility] [address] [place] [address] Komal Austin FNP [address] [place] [address] situational/hormonal anxiety Social History Tobacco Use Types Packs/Day Years Used Date Smoking Tobacco: Former Smokeless Tobacco: Never Comments:provider to sexual assault counselor Alcohol Use Standard Drinks/Week Comments Yes [...] - 09/30/2022 2:42 PM CST Please review/advise. PMENT INSTALLER * TESSA Blue - 09/26/2022 4:57 PM CST She can use her Imitrex as needed for the headache. Let me know if it does not resolve over the weekend. She can take Tylenol extra strength 2 tablets every 6 hours between Imitrex doses to see if that helps. PMENT INSTALLER * Ness Pizarro LPN - 09/26/2022 3:32 PM CST Please review/advise. Pt. Had OV yesterday. PMENT INSTALLER * TESSA Blue - 09/24/2022 12:19 PM CST Ok to keep ov scheduled tomorrow PMENT INSTALLER * Carole Abel RN - 09/16/2022 8:57 AM CST Rescheduled to Dec. at 3:00. PMENT INSTALLER * Carole Abel RN - 09/16/2022 8:40 AM CST Pt scheduled appt.for Monday 09/24 with Jessica. PMENT INSTALLER * Carole Abel RN - 09/15/2022 10:45 AM CST Please note and advise. PMENT INSTALLER documented in this encounter Plan of Treatment Not on file documented as of this encounter Visit Diagnoses Not on filedocumented in this encounter Additional Health Concerns Infection Onset Date Last Indicated Resolved Time COVID-19 Rule Out 02/26/2023 02/26/2023 02/26/2023 8:04 AM CDT Assessment Noted Time PHQ-9 Depression Total Score: 0 04/03/20 21 10:08 AM CDT documented as of this encounter Care Teams Soils Analyst Relationship Specialty Start Date End Date Komal Austin FNP [address] [place] [address] [place] [address] PCP - General Nurse Practitioner Family 09/20/18 documented as of this encounter
--- OUTSIDE RECORDS SUMMARY | 2025-02-27 12:40 | XMS_ITS | Clinical Summary ---
Author Organization [facility] Address [facility] [place] [address] Care Team Providers Care Color Finisher Name Role Phone Komal Austin [facility] Primary Care Provider [phone] Allergies Active Allergy Reactions Criticality Noted Date [...] 04/03/2021 History of shingles 04/03/2021 Rheumatoid arthritis ([facility]) 5 Overview (12/22/2018): Note: Seropositive -- Dr. Crandall Calculus of kidney 03/11/2014 Overview (12/22/2018): Overview: CALCULUS OF KIDNEY Anxiety disorder 09/26/2011 Depression 09/26/2011 Migraine 09/26/2011 Resolved Problems Problem Noted Date Diagnosed Date Resolved Date Situational stress 09/25/2022 3 Immunizations Immunization Administration Dates Next Due Influenza (Generic) 08/12/2013,09/13/2007 Td (Tenivac) preservative free 07/07/2005 Tdap (Generic) 11/16/2019,08/12/2013 Family History Medical History Relation Comments Breast Cancer Neg Hx Social History Tobacco Use Types Packs/Day Years Used Date Smoking Tobacco: Former Passive Smoke Exposure: Past Smokeless Tobacco: Never Tobacco Cessation:Counseling Given: No Comments:provider to camp counselor Alcohol Use Standard Drinks/Week Comments Yes [...] Respiratory Rate 16 09/11/2023 11:0 0 AM UNDERGROUND SUPERVISOR Oxygen Saturation 99% 03/22/2024 2:54 PM CDT [...] 2002 Cervical Cancer Screening with HPV 2002 Pneumococcal Vaccine: 50+ Years (1 of 1 - PCV) 2022 Zoster Vaccines (1 of 2) 2022 Annual Physical 08/08/2023 08/08/2022, 04/03/2021 COVID-19 Vaccine (1 - 2023-2 5 season) 2024 PHQ-2 (Physician [place]) 10/26/2024 02/26/2023 Mammogram Screening 03/23/2026 03/23/2024, 01/25/2024, 08/29/2022 DTaP, Tdap and Td Vaccines ( 3 - Td or Tdap) 11/16/2029 11/16/2019, 08/12/2013, 07/07/2005 Colorectal Cancer Screening Colonoscopy (10 Years) 02/13/2033 02/13/2023 Colorectal Cancer Screening FIT/FOBT (1 Year) Discontinued 01/02/2020 Meningococcal B Vaccine Aged Out No l onger eligible based on patient's age to complete this topic Meningococcal Vaccine Aged Out No ban alicia eligible based on patient's age to complete [...] Anatomical Region Laterality Modality Other 03/23/2024 [facility] Scanned SCANNING Final Resu lt * COLONOSCOPY GENERIC (02/13/2023) 02/13/2023 [facility] Scanned SCANNING Final Resu lt * FECAL BLOOD FIT SCREEN (01/02/2020 11:30 AM CDT) FECAL BLOOD FIT SCRN NEGATIVE NEGATIVE 01/09/2020 10:23 AM CDT [facility] 01/02/2020 11:3 0 AM CDT us Gladys Marr MD BODY FLUIDS AND STOOLS O RDERABLES Final Result Performing Organization Address City/State/[facility] de Phone Number [facility] [address] [place] [address], from Last 3 Months or Most Recently Relevant to Health Maintenance Insurance GENERIC - MEDICAID [employer] Care Teams Color Finisher Relationship Specialty Start Date End Date Komal Austin FNP [address] [place] [address] [address] [place] [id number] PCP - General Nurse Practitioner Family 09/20/18
--- OUTSIDE RECORDS SUMMARY | 2025-02-27 12:41 | XMS_ITS | Encounter Summary ---
Author Organization [facility] Address [address] [place] [address] Phone Care Team Providers Care Mens Locker Room Attendant Name Role Phone Eric Boyce MD Primary Care Provider [phone] Encounter Details Date Type Department Care Team (Late st Contact Info) Description 10/24/2019 Orders Only [facility] Scanning, Provider Social History Tobacco Use Types Packs/Day Years Used Date Smoking Tobacco: Former Comments Unknown Sex and Gender Information Value Date Recorded Sex Assigned at Not on file Legal Sex Female 11:32 PM RANGE MASTER Gender Identity Female 04/02/2021 7:34 AM CDT [...] on filedocumented in this encounter Care Teams Mens Locker Room Attendant Relationship Specialty Start Date End Date Eric Boyce MD [address] [place] [address] [place] [address] PCP - General Family Practice 02/19/18 documented as of this encounter
--- OUTSIDE RECORDS SUMMARY | 2025-02-27 12:41 | XMS_ITS | Encounter Summary ---
Author Organization [facility] Address [address] [place] [address] Phone Care Team Providers Care Engineering Patternmaker Name Role Phone Eric Boyce MD Primary Care Provider [phone] Encounter Details Date Type Department Care Team [...] on file Legal Sex Female 11:32 PM ELECTRIC SOLDERER Gender Identity Female 04/02/2021 7:34 AM CDT [...] on filedocumented in this encounter Care Teams Engineering Patternmaker Relationship Specialty Start Date End Date Eric Boyce MD [address] [place] [address] [place] [address] PCP - General Family Practice 02/19/18 documented as of this encounter
--- OUTSIDE RECORDS SUMMARY | 2025-02-27 12:41 | XMS_ITS | Referral Summary ---
Author Organization [facility] Address [address] [place] [address] Care Team Providers Care Polysomnography Tech Name Role Phone Eric Boyce MD Primary Care Provider [phone] Encounters Date Type Department Care Team Description 12/13/2024 Telephone [facility] [address] [place] [address] Cintia Sharma [facility] Prior Auth (Hyrimoz) from Last 3 Months [...] Date Migraine with aura 05/09/2014 Overview (01/29/2017[facility] Calculus of kidney 03/11/2014 Overview (01/29/2017): [...] on file Legal Sex Female 11:32 PM YARN WORKER Gender Identity Female 04/02/2021 7:34 AM [...] ID:Not on file Type:MEDICAID RISK OTHER Address: [address] [facility]/PPO Address: [address] [address] Care Teams Polysomnography Tech Relationship Specialty Start Date End Date Eric Boyce MD [address] [place] [address] [place] [address] PCP - General Family Practice 02/19/18
--- OUTSIDE RECORDS SUMMARY | 2025-02-27 12:41 | XMS_ITS | Encounter Summary ---
Author Organization [facility] Address [address] [place] [address] Care Team Providers Care Clinical Dietitian Name Role Phone Komal Austin Primary Care Provider [phone] Encounter Details Date Type Department Care Team (Late st Contact Info) Description 11/19/2022 tamycat Message Enc [facility] [address] [place] [address] Komal Austin FNP [address] [place] [address] Anxiety Social History Tobacco Use Types Packs/Day Years Used Date Smoking Tobacco: Former Smokeless Tobacco: Never Comments:provider to prison classification counselor Alcohol Use Standard Drinks/Week Comments Yes [...] takingit. Follow up if any sx recur ICAPPER HARNESS RACING documented in this encounter Plan of Treatment Not on file documented as of this encounter Visit Diagnoses Not on filedocumented in this encounter Additional Health Concerns Infection Onset Date Last Indicated Resolved Time COVID-19 Rule Out 02/26/2023 02/26/2023 02/26/2023 8:04 AM CDT Assessment Noted Time PHQ-9 Depression Total Score: 0 10/15/20 22 8:35 AM HANDICAPPER HARNESS RACING documented as of this encounter Care Teams Clinical Dietitian Relationship Specialty Start Date End Date Komal Austin FNP [address] [place] [address] [place] [address] PCP - General Nurse Practitioner Family 09/20/18 documented as of this encounter
--- OUTSIDE RECORDS SUMMARY | 2025-02-27 12:41 | XMS_ITS | Encounter Summary ---
Author Organization [facility] Address [address] [place] [address] Care Team Providers Care Transition Lead Name Role Phone Komal Autsin [facility] Primary Care Provider [phone] Encounter Details Date Type Department Care Team (Late st Contact Info) Description 08/08/2022 Clear Shape Technologiest Message Enc [facility] [address] [place] [address] [facility] [address] [place] [address] Genetic testing information on my aunt Social History Tobacco Use Types Packs/Day Years Used Date Smoking Tobacco: Former Smokeless Tobacco: Never Comments:provider to counseling director Alcohol Use Standard Drinks/Week Comments Yes 0 [...] documented as of this encounter Care Teams Transition Lead Relationship Specialty Start Date End Date Komal Austin FNP [address] [place] [address] [place] [address] PCP - General Nurse Practitioner Family 09/20/18 documented as of this encounter
--- OUTSIDE RECORDS SUMMARY | 2025-02-27 12:41 | XMS_ITS | Clinical Summary ---
Author Organization [facility] Address [address] [place] [address] Care Team Providers Care Buddhist Monk Name Role Phone Eric Boyce MD Primary Care Provider Allergies Active Allergy Reactions Criticality Noted Date [...] Date Migraine with aura 05/09/2014 Overview (01/29/2017): [facility] MIGRNE WO [facility] MGRN Calculus of kidney 03/11/2014 Overview (01/29/2017): CALCULUS OF KIDNEY Seropositive rheumatoid arthritis 03/11/2014 Overview (01/29/2017): SEROPOSITIVE RHEUMATOID ARTHRITIS Closed fracture of bone 09/10/2012 Arthralgia of elbow 05/21/2011 Encounters Date Type Department Care Team Description 12/13/2024 Telephone [facility] [address] [facility] [address] [place] [address] Cintia Sh[facility] Prior Auth (Charles) from Last 3 Months [...] on file Legal Sex Female 11: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 Care Teams Buddhist Monk Relationship Specialty Start Date End Date Eric Boyce MD [address] [place] [address] [place] [address] PCP - General Family Practice 02/19/18
--- OUTSIDE RECORDS SUMMARY | 2025-02-27 12:41 | XMS_ITS | Encounter Summary ---
Author Organization [facility] Address [address] [place] [address] Care Team Providers Care Corn Cutter Name Role Phone Komal Austin Primary Care Provider [phone] Encounter Details Date Type Department Care Team (Late st Contact Info) Description 03/16/2024 BinWisehart Message Enc [facility] [address] [place] [address] Komal Austin FNP [address] [place] [address] Neck pain Social History Tobacco Use Types Packs/Day Years Used Date Smoking Tobacco: Former Passive Smoke Exposure: Past Smokeless Tobacco: Never Comments:provider to teen counselor Alcohol Use Standard Drinks/Week Comments Yes [...] Total Score: 0 10/15/20 22 8:35 AM DENTAL EQUIPMENT REPAIRER documented as of this encounter Care Teams Corn Cutter Relationship Specialty Start Date End Date oKmal Austin FNP [address] [place] [address] PCP - General Nurse Practitioner Family 09/20/18 documented as of this encounter
[2025-02-27 13:10] LABS: Basophils Absolute Auto 0.1 K/mm3 (0.0-0.1); Basophils Percent Auto 0.9 % (0.2-1.2); Eosinophils Absolute Auto 0.1 K/mm3 (0-0.3); Eosinophils Percent Auto 1.1 % (0-4.4); Hemoglobin 13.6 g/dL (12.0-15.0); Immature Granulocyte Absolute 0.03 K/mm3 (0.00-0.031); Immature Granulocyte Percent A 0.4 % (0-0.5); Lymphocytes Absolute Auto 2.78 K/mm3 (0.9-3.2); Lymphocytes Percent Auto 37.7 % (18.3-44.2); Mean Corpuscular HGB Conc 32.4 g/dl (32-36); Mean Corpuscular Hemoglobin 34.1 pg (26-34); Mean Corpuscular Volume 105.3 fl (80-100); Mean Platelet Volume 10.6 fl (7.4-10.4); Monocytes Absolute Auto 0.6 K/mm3 (0.1-0.6); Monocytes Percent Auto 7.5 % (2.6-8.5); Neutrophils Absolute Auto 3.9 K/mm3 (1.3-6.7); Neutrophils Percent Auto 52.4 % (45.5-73.1); Platelet Count Result 241 k/mm3 (150-375); Red Blood Count 3.99 M/mm3 (4.2-5.4); Red Cell Distribution Width 13.9 % (11.5-14.5); White Blood Count 7.4 K/mm3 (4.5-10.0)
[2025-02-27 13:38] LABS: Macrocytosis 1+ (NORMAL); Platelet Estimate Adequate (Adequate); Schistocytes None Seen
[2025-02-27 13:39] LABS: Alanine Aminotransferase 33 U/L (6-35); Albumin Level 4.5 g/dL (3.5-5.1); Alkaline Phosphatase 69 U/L (38-126); Anion Gap 8 mmol/L (4-12); Aspartate Amino Transferase 39 U/L (14-36); Bilirubin,Total 0.6 mg/dL (0.2-1.3); Blood Urea Nitrogen 12 mg/dL (7-17); Calcium 8.8 mg/dL (8.4-10.2); Carbon Dioxide 26 mmol/L (22-30); Chloride 102 mmol/L (98-107); Estimated Glomerular Filt Rate > 60; Glucose 83 mg/dL (65-110); Potassium 4.1 mmol/L (3.4-5.0); Sodium 136 mmol/L (137-145)
== END 2025-02-27 12:13 | disposition home or self-care (01) ==
LOC: ANHLAB 12:14
PROVIDERS: PCP Nurse Practitioner; Visit Provider Internal Medicine Rheumatology
DX: M05.9 Rheumatoid arthritis with rheumatoid factor, unspecified (principal); Z79.899 Other long term (current) drug therapy
CPT/HCPCS: 36415; 80053; 85025

== ENCOUNTER 2025-03-19 15:49 | Emergency (ER) | payer OTHER, SELFPAY ==
--- OUTSIDE RECORDS SUMMARY | 2025-03-19 15:52 | XMS_ITS | Encounter Summary ---
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
--- OUTSIDE RECORDS SUMMARY | 2025-03-19 15:52 | XMS_ITS | Referral Summary ---
Author Organization [facility] Address [address] [place] [address] Care Team Providers Care Web Applications Programmer Name Role Phone Eric Boyce MD Primary Care Provider [phone] Encounters Date Type Department Care Team Description 03/08/2025 Orders Only [facility] Rheumatology [address] [facility] Medicine 5th [place] [address] [place] [address] Kristin aNnce MD Seropositive rheumatoid arthritis (HCC) (Primary Dx); High risk medication use; Elevated LFTs 03/08/2025 Results Follow-Up [facility] Rheumatology [address] [place] [address] [place] [address] [place] [address] Kristin Nance MD CBC with auto differential, Comprehensive metabolic panel from Last 3 Months Allergies Active Allergy [...] 12/08/19 25 Active methotrexate 2.5 mg tabletIndicati ons:Other - non-oncology Take 10 tablets (25 mg total) by mouth every 7 days 120 tablet 1 03/08/20 25 Active methotrexate 2.5 mg tabletIndicati ons:Rheumatoid Arthritis TAKE 10 TABLETS (25 MG TOTAL) BY MOUTH EVERY 7 DAYS TAKE 5 TABLETS IN THE MORNING AND 5 TABLETS IN THE EVENING ON SATURDAYS 40 tablet 02/14/20 25 025 Discontinued Active Problems Problem Noted Date Diagnosed Date Migraine with aura 05/09/2014 Overview (01/29/2017): [facility] MIGRNE WO [facility] MGRN Calculus of kidney 03/11/2014 Overview (01/29/2017): [...] on file 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 Gender Identity Female 04/02/2021 7:34 AM CDT [...] 8:25 AM CDT Height 165.1 cm (5' 5) 06/13/2024 8:25 AM CDT Body Mass Index 21.8 06/13/2024 8:25 AM CDT Plan of Treatment Not on file Procedures Procedure Name Priority Date/Time Associated Diagnosis Comments COMPREHENSIVE METABOLIC PANEL Routine 02/27/2025 Seropositive rheumatoid arthritis (HCC) High risk medication use CBC WITH AUTO DIFFERENTIAL Routine 02/27/2025 Seropositive rheumatoid arthritis (HCC) High risk medication use from Last 3 Months Results * CBC with auto differential (02/27/2025) SCRIBED WBC 7.4 4.5 - 10.0 k/cumm EXTERNAL LAB SCRIBED Hemoglobin 13.6 12.0 - 15.0 g/dL EXTERNAL LAB SCRIBED Platelets 241 150 - 375 k/cumm EXTERNAL LAB Blood 02/27/2025 us Kristin Nance MD LAB BLOOD ORDERABLES Final R esult EXTERNAL LAB * (ABNORMAL) Comprehensive metabolic panel (02/27/2025) SCRIBED Creatinine 0.75 0.7 - 1.0 mg/dl EXTERNAL LAB SCRIBED Plasma Protein 8.0 6.3 - 8.2 g/dl EXTERNAL LAB SCRIBED Alkaline Phosphatase 69 38 - 126 Units/L EXTERNAL LAB SCRIBED Alanine Transaminase (ALT) 33 6 - 35 Units/L EXTERNAL LAB SCRIBED Aspartate Transaminase (AST) 39(A) 14 - 36 Units/L EXTERNAL LAB Blood 02/27/2025 us Kristin Nance MD LAB BLOOD ORDERABLES Final R esult EXTERNAL LAB from Last 3 Months Insurance [facility] Care Teams Web Applications Programmer Relationship Specialty Start Date End Date Eric Boyce MD [address] [place] [address] [place] [address] PCP - General Family Practice 02/19/18
--- OUTSIDE RECORDS SUMMARY | 2025-03-19 15:52 | XMS_ITS | Clinical Summary ---
Author Organization [facility] Address [address] [place] [address] Care Team Providers Care Pound Attendant Name Role Phone Eric Boyce MD Primary Care Provider [phone] Allergies Active Allergy Reactions Criticality Noted Date [...] Date Migraine with aura 05/09/2014 Overview (01/29/2017): [facility] Calculus of kidney 03/11/2014 Overview (01/29/2017): CALCULUS OF KIDNEY Seropositive rheumatoid arthritis 03/11/2014 Overview (01/29/2017): SEROPOSITIVE RHEUMATOID ARTHRITIS Closed fracture of bone 09/10/2012 Arthralgia of elbow 05/21/2011 Encounters Date Type Department Care Team Description 03/08/2025 Orders Only [facility] Rheumatology [address] [facility] 5th [place] [address] [place] [address] Kristin Nance MD Seropositive rheumatoid arthritis (HCC) (Primary Dx); High risk medication use; Elevated LFTs 03/08/2025 Results Follow-Up [facility] Rheumatology [address] [facility] 5th [place] [address] [place] [address] Kristin Nance MD CBC with auto differential, Comprehensive metabolic panel from Last 3 Months Immunizations Immunization Administration [...] on file 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 [place] [address] [facility] Care Teams Pound Attendant Relationship Specialty Start Date End Date Eric Boyce MD [address] [place] [address] [place] [address] PCP - General Family Practice 02/19/18
--- OUTSIDE RECORDS SUMMARY | 2025-03-19 15:52 | XMS_ITS | Encounter Summary ---
Author Organization [facility] Address [address] [place] [address] Phone Care Team Providers Care Study Coordinator Name Role Phone Eric Boyce MD Primary Care Provider [phone] Encounter Details Date Type Department Care Team (Latest Contact Info) Description 03/08/2025 Results Follow-Up [facility] Rheumatology [address] [facility] Advanced Medicine 5th [place] [address] [place] [address] Kristin Nance MD [address] [place], [place] [id number] CBC with auto differential, Comprehensive metabolic panel Social History Tobacco Use Types Packs/Day Years Used Date Smoking Tobacco: Former Smokeless Tobacco: Never Personal Safety Answer Date Recorded Getting School Help Needed Not on file 11/13 Comments Unknown Sex and Gender Information Value Date Recorded Sex Assigned at Not on file 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
--- OUTSIDE RECORDS SUMMARY | 2025-03-19 15:52 | XMS_ITS | Encounter Summary ---
Author Organization [facility] Address [address] [place] [address] Phone Care Team Providers Care Foreman/Project Manager Name Role Phone Eric Boyce MD Primary Care Provider [phone] Encounter Details Date Type Department Care Team (Late st Contact Info) Description 10/24/2019 Orders Only [facility] Scanning, Provider Social History Tobacco Use Types Packs/Day Years Used Date Smoking Tobacco: Former Comments Unknown Sex and Gender Information Value Date Recorded Sex Assigned at Not on file Legal Sex Female 11:32 PM DRAGGER OUT Gender Identity Female 04/02/2021 7:34 AM CDT [...] on filedocumented in this encounter Care Teams Foreman/Project Manager Relationship Specialty Start Date End Date Eric Boyce MD [address] [place] [address] [place] [address] PCP - General Family Practice 02/19/18 documented as of this encounter
[2025-03-19 15:59] VITALS: BP 117/94; PULSE 72; RESP 18; TEMP 36.8; O2SAT 100
--- NOTE | 2025-03-19 16:09 | ED.GENADULT ---
HPI - General Adult General Chief complaint: Skin/Abscess/Foreign Body Stated complaint: splinter History of Present Illness HPI narrative: Gabe Rodríguez is a 54 y/o female who presents with complaints of getting a large splinter in the palmar aspect of her right hand. She attempted to dig it out at home without success and reported increase pain. Related Data Home Medications ?Medication ?Instructions ?Recorded ?Confirmed ?Last Taken ?Type adalimumab 40 mg/0.8 mL 40 mg subcut WEEKLY 03/04/22 02/13/23 Unknown History subcutaneous syringe kit (Humira) methotrexate sodium 2.5 mg tablet 15 mg PO WEEKLY 03/04/22 02/13/23 Unknown History sumatriptan succinate 50 mg tablet 50 mg PO DAILY PRN Migraine 03/04/22 02/13/23 Unknown History Headache estradiol-norethindrone acet 0.5 tablet 03/19/25 Unknown History mg-0.1 mg tablet folic acid 1 mg tablet 03/19/25 Unknown History Allergies Allergy/AdvReac Type Severity Reaction Status Date / Time adhesive tape Allergy Mild Rash Verified 03/19/25 16:00 Review of Systems Review of Systems: All systems reviewed & are unremarkable except as noted in HPI and below PMFSH Past Medical History Medical History Vaginal discharge History of endometrial biopsy (05/13/07) hscope EMB Miscarriage (03/11/02) Rheumatoid arthritis Uterine fibroid Migraines HSV-2 seropositive Recurrent cold sores Shingles Surgical History Surgical History History of adenoidectomy History of elbow surgery (~2010) secondary to RA History of bladder suspension procedure (~2008) History of endometrial ablation (05/27/07) hscope endometrial ablation--dysmenorrhea/menometrorrhagia History of dilation and curettage (03/11/02) suction d&c--miscarriage History of tubal ligation (~2002) History of 1988 2002 Family History Family History Father Hypertension Depression Mother Hypertension Other Colon polyp maternal aunt Sibling Depression Grandparent Cerebrovascular accident Social History Social History (Reviewed 03/19/25 @ 16:38 by MADAY Cat Smoking status: Former smoker Tobacco type: cigarettes Alcohol intake: current Drinks per week: 5 Substance use: never Substance use type: does not use Do You Feel Safe in your Home?: Yes Lack of Transportation: No Lack of Food: Never True Current Housing: I Have Housing Concerned About Future Housing: No Difficulty Paying Gas/Electric Bills: No Difficulty Paying for Meds: No Currently Unemployed: No Education: Trade/Vocational Certificate Difficulty w/ Childcare or Family Care: No Living arrangements: with family Additional living arrangements comments: Occupation/Education: occupation Additional occupation/education comments: real estate Gender identity (if verbalized by the patient): Female Sexual Orientation (if Verbalized by the Patient): Straight or Heterosexual Spiritual care concerns: No Exam Narrative: GENERAL: Well-appearing, well-nourished, and in no acute distress. HEAD: Normocephalic, atraumatic. EYES: PERRLA and EOMI. ENT: Nares clear, no rhinorrhea or epistaxis. Mucous membranes moist. Oropharynx without tonsillar hypertrophy exudate or other lesions. Bilateral TMs pearly austin nonbulging NECK: Supple. No adenopathy or masses. No carotid bruits or JVD CHEST: Clear to auscultation. No respiratory distress. No wheezes rales or rhonchi HEART: Regular rate and rhythm. No murmur heard. Normal peripheral pulses. ABDOMEN: Soft, nontender, nondistended, normal active bowel sounds. EXTREMITIES: Normal range of motion. No edema. SKIN: Warm, dry, no rash. NEURO: No focal deficits. Alert and oriented x3. PSYCH: Normal mood and affect. Course Course Level of Care: Express Care Visit Vital Signs Vital signs: Vital Signs Temperature 36.8 C 03/19/25 15:59 Pulse Rate 72 03/19/25 15:59 Respiratory Rate 18 03/19/25 15:59 Blood Pressure 117/94 H 03/19/25 15:59 Pulse Oximetry 100 03/19/25 15:59 Oxygen Delivery Room Air 03/19/25 15:59 Temperature 36.8 C 03/19/25 15:59 Pulse Rate 72 03/19/25 15:59 Respiratory Rate 18 03/19/25 15:59 Blood Pressure 117/94 H 03/19/25 15:59 Pulse Oximetry 100 03/19/25 15:59 Oxygen Delivery Room Air 03/19/25 15:59 Medical Decision Making MDM Narrative Medical decision making narrative: 54-year-old female who presents after getting a wooden splinter into the palmar aspect of her right hand. She states it came from a wooden board at home. family tried digging it out at home without success and now has increased pain there is a questionable area that could be the splinter under her skin of her right palm Numbing cream applied to area and then cleansed area and attempted to apply pressure to evaluate for the location and size of the splinter, there was an a few openings noted which she states one was from family attempting to get it out. I tried to use the opening to see if I could get the splinter to come through there, pt was not tolerating well and had pain to the area, I did not feel comfortable making a large incision to her hand to remove this. I told her that we will update her Tdap, start her on Keflex prophylactically given she is on Humira and encouraged warm soaks at home and this should make its way out on its own, but will provide her with plastics / hand specialist to follow up with for formal removal if need be. She is agreeable to this plan and all questions answered. Medical Records Medical records reviewed: Yes I reviewed the external patient's medical records. Vital Signs Vital Signs: Vital Signs Temperature 36.8 C 03/19/25 15:59 Pulse Rate 72 03/19/25 15:59 Respiratory Rate 18 03/19/25 15:59 Blood Pressure 117/94 H 03/19/25 15:59 Pulse Oximetry 100 03/19/25 15:59 Oxygen Delivery Room Air 03/19/25 15:59 Temperature 36.8 C 03/19/25 15:59 Pulse Rate 72 03/19/25 15:59 Respiratory Rate 18 03/19/25 15:59 Blood Pressure 117/94 H 03/19/25 15:59 Pulse Oximetry 100 03/19/25 15:59 Oxygen Delivery Room Air 03/19/25 15:59 Vitals reviewed by me Discharge Plan Discharge Clinical Impression: Splinter Patient Disposition: Home Condition: Stable Instructions: Antibiotic Form Additional Instructions: Continue to do the warm compresses and soaks at home Start taking the Cephalexin twice daily to prevent infection This should start to work its way out on its own, however if it does not then call to follow up with the hand specialist as discussed Follow up with your PCP in 1 week Patient Language: Estonian Prescriptions: New cephalexin 500 mg capsule 500 mg PO Q12H Qty: 10 0RF No Action folic acid 1 mg tablet estradiol-norethindrone acet 0.5-0.1 mg tablet Humira 40 mg/0.8 mL syringe kit 40 mg subcut WEEKLY methotrexate sodium 2.5 mg tablet 15 mg PO WEEKLY sumatriptan succinate 50 mg tablet 50 mg PO DAILY PRN (Reason: Migraine Headache) Follow-up/Referrals: Sathish Almendarez MD [Physician] - 3 Days Austin,HENRY Pompa [Primary Care Provider] - Time of Disposition: 16:40
[2025-03-19] MEDS: LIDOCAINE/PRILOCAINE CREAM 2.5-2.5% TUBE 1 EACH TOPICAL (16:11)
[2025-03-19] MEDS: TETANUS,DIPHTHERIA,AC PERTUSSIS ADULT (0.5 ML) BOOSTRIX IM (16:45)
== END 2025-03-19 16:51 | disposition home or self-care (01) ==
PROVIDERS: Emergency Provider Nurse Practitioner Family; PCP Nurse Practitioner
DX: S60.551A Superficial foreign body of right hand, initial encounter (principal); W45.8XXA Other foreign body or object entering through skin, initial encounter; Z23 Encounter for immunization; M06.9 Rheumatoid arthritis, unspecified; Z87.891 Personal history of nicotine dependence
CPT/HCPCS: 90471; 90715; 99212; G0463

== ENCOUNTER 2025-03-31 12:57 | Outpatient (CLI) | payer OTHER, SELFPAY ==
--- NOTE | ~2025-03-31 | US_ITS ---
US soft tissue UE RT 03/31/2025 13:52 Indication: Evaluate for splinter in the right palm Procedure: High-resolution Limited ultrasound of the right hand anteriorly at the MCP joint Comparison: No prior studies Findings: In the area of palpable concern there is a linear echogenic foreign body measuring 9 x 3 mm . No abnormal fluid. Impression: 1: Linear echogenic foreign body in the area of palpable concern measuring 9 x 3 mm. Reviewed, dictated and finalized at location A. Impression: 1: Linear echogenic foreign body in the area of palpable concern measuring 9 x 3 mm.
== END 2025-03-31 12:58 | disposition home or self-care (01) ==
LOC: GOSHIMG 12:58
PROVIDERS: PCP Plastic Surgery; Visit Provider Plastic Surgery
DX: S60.551A Superficial foreign body of right hand, initial encounter (principal); X58.XXXA Exposure to other specified factors, initial encounter
CPT/HCPCS: 76882

== ENCOUNTER 2025-04-03 07:44 | Outpatient (CLI) | payer OTHER, SELFPAY ==
--- NOTE | ~2025-04-03 | MMUS_ITS ---
EXAMINATION: MM post biopsy diagnostic LT, US_MAGSEEDLT_US INDICATION: Changing morphology of left breast mass. TECHNIQUE: The procedure for a ultrasound -guided Magseed localization was discussed with the patient . Risks discussed included bleeding and infection. The patient verbalized understanding and agreed to proceed. The time out was performed to verify the patient's name, date of , and site of procedure. The s kin overlying the left breast was prepared in usual fashion. Utilizing ultrasound guidance, the needl e was advanced into the left breast. Confirmation of Magseed position was achieved with ultrasound an d subsequent mediolateral and craniocaudal mammogram. The patient tolerated procedure without immedia te complication. BREAST PARENCHYMAL COMPOSITION: Dense: The breasts are heterogeneously dense, which may obscure small masses FINDINGS: Ultrasound and mammographic images demonstrate deployment of the Magseed device in the uppe r outer quadrant of the left breast. IMPRESSION: 1. Successful ultrasound-guided left breast Magseed localization. Post procedure mammogram for marker placement. Reviewed, dictated and finalized at location B. IMPRESSION: 1. Successful ultrasound-guided left breast Magseed localization. Post procedur e mammogram for marker placement.
--- OUTSIDE RECORDS SUMMARY | 2025-04-03 07:49 | XMS_ITS | Clinical Summary ---
Author Organization [facility] Address [address] [place] [address] Care Team Providers Care Firewood Cutter Name Role Phone Eric Boyce MD Primary Care Provider [phone] Allergies Active Allergy Reactions Criticality Noted Date Comments Adhesive Itching Low 10/07/2021 Reaction: itchy, Adhesive Tape-Silicones Itching Reaction: itchy, Latex Itching Reaction: itchy, Medications predniSONE (DELTASONE) 5 mg tablet as needed Active Ubrelvy 50 mg tablet 05/11/20 24 Active estradiol-nore thindrone (ACTIVELLA) 0.5-0.1 mg per tablet 06/12/20 24 Active folic acid (FOLVITE) 1 mg tabletIndicati ons:Seropositi ve rheumatoid arthritis (HCC) TAKE 1 TABLET BY MOUTH ONCE DAILY 90 tablet 3 06/30/20 24 Active Additional Information Patient not taking.Reason: NEEDS REFIIL, Reported on 03/27/2025 adalimumab-ada z 40 mg/0.4 mL pen injector Inject 40 mg under the skin once a week 4.8 mL 1 12/08/19 25 Active methotrexate 2.5 mg tabletIndicati ons:Other - non-oncology Take 10 tablets (25 mg total) by mouth every 7 days 120 tablet 1 03/08/20 25 Active cephalexin (KEFLEX) 500 mg capsule Take 1 capsule (500 mg total) by mouth every 12 (twelve) hours 03/19/20 25 Active terconazole (TERAZOL 3) 0.8 % vaginal cream as needed 03/17/20 25 Active rizatriptan (MAXALT) 10 mg tablet 025 Discontinued fluconazole (DIFLUCAN) 150 mg tablet Take 1 tablet (150 mg total) by mouth daily 03/04/20 22 025 Discontinued methotrexate 2.5 mg tabletIndicati ons:Rheumatoid Arthritis TAKE 10 TABLETS (25 MG TOTAL) BY MOUTH EVERY 7 DAYS TAKE 5 TABLETS IN THE MORNING AND 5 TABLETS IN THE EVENING ON SATURDAYS 40 tablet 02/14/20 25 025 Discontinued Active Problems Problem Noted Date Diagnosed Date Migraine with aura 05/09/2014 Overview (01/29/2017): [facility] MIGRNE WO [facility] MGRN Calculus of kidney 03/11/2014 Overview (01/29/2017): CALCULUS OF KIDNEY Seropositive rheumatoid arthritis 03/11/2014 Overview (01/29/2017): SEROPOSITIVE RHEUMATOID ARTHRITIS Closed fracture of bone 09/10/2012 Arthralgia of elbow 05/21/2011 Encounters Date Type Department Care Team Description 03/27/2025 9:20 AM CDT Office Visit [facility] Rheumatology [address] [place] [address] [place] [id number] Kristin Nance MD Seropositive rheumatoid arthritis (HCC) (Primary Dx); High risk medication use; Preoperative clearance; Vitamin D deficiency; Mass of breast, unspecified laterality 03/08/2025 Orders Only [facility] Rheumatology [address] [place] [address] [place] [id number] Kristin Nance MD Seropositive rheumatoid arthritis (HCC) (Primary Dx); High risk medication use; Elevated LFTs 03/08/2025 Results Follow-Up [facility] Rheumatology [address] [place] [address] [place] [phone] Kristin Nance MD CBC with auto differential, Comprehensive metabolic panel from Last 3 Months Immunizations Immunization Administration Dates Next Due Influenza, Trivalent, IM (ROSS) 09/13/2007 Surgical History Surgery Date Site/Laterality Comments KNEE ARTHROSCOPY W/ PLICA EXCISION Medical History Medical History Date Comments Rheumatoid arthritis (HCC) Migraine Kidney stone Family History Medical History Relation Name Comments Rheum arthritis Father Relation Name Status Comments Father Social History Tobacco Use Types Packs/Day Years Used Date Smoking Tobacco: Former Smokeless Tobacco: Never Comments Unknown Sex and Gender Information Value Date Recorded Sex Assigned at Not on file 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 Gender Identity Female 04/02/2021 7:34 AM CDT Sexual Orientation Straight 04/02/2021 7: 34 AM CDT Obstetrics History Last Filed Vital Signs Vital Sign Reading Time Taken Comments Blood Pressure 132/89 03/27/2025 9:01 AM CDT Pulse 71 03/27/2025 9:01 AM CDT Temperature 37 C (98.6 F) 03/27/2025 9:01 AM CDT Respiratory Rate - - Oxygen Saturation - - Inhaled Oxygen Concentration - - Weight 59.9 kg (132 lb) 03/27/2025 9:01 AM CDT Height 165.1 cm (5' 5) 03/27/2025 9:01 AM CDT Body Mass Index 21.97 03/27/2025 9:01 AM CDT Plan of Treatment Health Maintenance [...] - 36 Units/L EXTERNAL LAB Blood 02/27/2025 Kristin Nance MD LAB BLOOD ORDERABLES Final R esult EXTERNAL LAB from Last 3 Months Insurance [facility] Care Teams Firewood Cutter Relationship Specialty Start Date End Date Eric Boyce MD [address] [place] [address] [place] [address] PCP - General Family Practice 02/19/18
--- OUTSIDE RECORDS SUMMARY | 2025-04-03 07:49 | XMS_ITS | Encounter Summary ---
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
--- OUTSIDE RECORDS SUMMARY | 2025-04-03 07:49 | XMS_ITS | Referral Summary ---
Author Organization [facility] Address [facility] [place] [address] Care Team Providers Care Head Concierge Name Role Phone Eric Boyce MD Primary Care Provider [phone] Encounters Date Type Department Care Team Description 03/27/2025 9:20 AM CDT Office Visit [facility] Rheumatology [address] [place] [address] 5th [place] [address] Kristin Nance MD Seropositive rheumatoid arthritis (HCC) (Primary Dx); High risk medication use; Preoperative clearance; Vitamin D deficiency; Mass of breast, unspecified laterality 03/08/2025 Orders Only [facility] Rheumatology [address] [place] [address] [place] [phone] Kristin Nance MD Seropositive rheumatoid arthritis (HCC) (Primary Dx); High risk medication use; Elevated LFTs 03/08/2025 Results Follow-Up [facility] Rheumatology [address] [place] [address] [place] [address] Kristin Nance MD CBC with auto differential, [...] Migraine with aura 05/09/2014 Overview (01/29/2017): [facility] Calculus of kidney 03/11/2014 Overview (01/29/2017): [...] on file 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 Care Teams Head Concierge Relationship Specialty Start Date End Date Eric Boyce MD [address] [place] [address] [address] [place] [place] [address] PCP - General Family Practice 02/19/18
--- OUTSIDE RECORDS SUMMARY | 2025-04-03 07:49 | XMS_ITS | Encounter Summary ---
Author Organization [facility] Address [address] [place] [address] Phone Care Team Providers Care Pattern Checker Name Role Phone Eric Boyce MD Primary Care Provider [phone] Encounter Details Date Type Department Care Team (Late st Contact Info) Description 07/22/2024 Orders Only [facility] Scanning, Provider Social History Tobacco Use Types Packs/Day Years Used Date Smoking Tobacco: Former Smokeless Tobacco: Never Comments Unknown Sex and Gender Information Value Date Recorded Sex Assigned at Not on file Legal Sex Female 11:32 PM RESEARCH RN SPEC Gender Identity Female 04/02/2021 7:34 AM CDT [...] on filedocumented in this encounter Care Teams Pattern Checker Relationship Specialty Start Date End Date Eric Boyce MD [address] [place] [address] [place] [address] PCP - General Family Practice 02/19/18 documented as of this encounter
--- OUTSIDE RECORDS SUMMARY | 2025-04-03 07:49 | XMS_ITS | Encounter Summary ---
Author Organization [facility] Address [address] [place] [address] Phone Care Team Providers Care Infantry Unit Leader Name Role Phone Eric Boyce MD Primary Care Provider [phone] Encounter Details Date Type Department Care Team (Latest Contact Info) Description 03/08/2025 Results Follow-Up [facility] Rheumatology [address] [facility] Medicine 5th [place] [address] [place] [address] Kristin Nance MD [address] [place] [address] CBC with auto differential, Comprehensive metabolic panel Social History Tobacco Use Types Packs/Day Years Used Date Smoking Tobacco: Former Smokeless Tobacco: Never Comments Unknown Sex and Gender Information Value Date Recorded Sex Assigned at Not on file Legal Sex Female 11:32 PM HAND WEAVER Gender Identity Female 04/02/2021 7:34 AM CDT Sexual Orientation Straight 04/02/2021 7: 34 AM CDT documented as of this encounter Plan of Treatment Not on file documented as of this encounter Visit Diagnoses Not on filedocumented in this encounter Care Teams Infantry Unit Leader Relationship Specialty Start Date End Date Eric Boyce MD [address] [place] [address] [place] [address] PCP - General Family Practice 02/19/18 documented as of this encounter
== END 2025-04-03 07:45 | disposition home or self-care (01) ==
PROVIDERS: PCP Plastic Surgery; Visit Provider Surgery
DX: N63.21 Unspecified lump in the left breast, upper outer quadrant (principal)
CPT/HCPCS: 19285; 77065; A4648

== ENCOUNTER 2025-04-04 11:44 | Outpatient (CLI) | payer OTHER, SELFPAY ==
--- NOTE | ~2025-04-04 | XR_ITS ---
Cervical Spine: AP, lateral, open-mouth views Clinical History: Rheumatoid arthritis Findings: The normal lordotic curve is maintained. The vertebral bodies and posterior elements appea r intact. The intervertebral disc spaces are well maintained. No instability on flexion or extension . Pre-vertebral soft tissues are unremarkable. Impression: No significant abnormality is seen. Reviewed, dictated and finalized at [facility]. Impression: No significant abnormality is seen.
--- NOTE | ~2025-04-04 | XR_ITS ---
Left Hand Technique: PA, oblique, and lateral views were obtained. Clinical History: Rheumatoid arthritis Findings: No acute fracture or dislocation is seen. Osseous alignment is anatomic. Joint spaces are p reserved. Soft tissues are unremarkable. Impression: Unremarkable left hand. Reviewed, dictated and finalized at location M. Impression: Unremarkable left hand.
--- NOTE | ~2025-04-04 | XR_ITS ---
Right Hand Technique: PA, oblique, and lateral views were obtained. Clinical History: Rheumatoid arthritis Findings: No acute fracture or dislocation is seen. Osseous alignment is anatomic. Joint spaces are p reserved. Soft tissues are unremarkable. Impression: Unremarkable right hand. Reviewed, dictated and finalized at location M. Impression: Unremarkable right hand.
--- NOTE | ~2025-04-04 | XR_ITS ---
Left foot Technique: AP, oblique, and lateral views were obtained. Clinical History: Rheumatoid arthritis Findings: No acute fracture or dislocation is seen. Osseous alignment is anatomic. Joint spaces are p reserved without erosive or degenerative change. Soft tissues are unremarkable. Impression: Unremarkable left foot radiographs. Reviewed, dictated and finalized at [facility]. Impression: Unremarkable left foot radiographs.
--- NOTE | ~2025-04-04 | XR_ITS ---
Right foot Technique: AP, oblique, and lateral views were obtained. Clinical History: Rheumatoid arthritis Findings: No acute fracture or dislocation is seen. Osseous alignment is anatomic. Joint spaces are p reserved without erosive or degenerative change. Soft tissues are unremarkable. Impression: Unremarkable right foot radiographs. Reviewed, dictated and finalized at [facility]. Impression: Unremarkable right foot radiographs.
== END 2025-04-04 11:45 | disposition home or self-care (01) ==
LOC: GOSHIMG 11:45
PROVIDERS: PCP Internal Medicine Rheumatology; Visit Provider Internal Medicine Rheumatology
DX: Z01.818 Encounter for other preprocedural examination (principal); M05.9 Rheumatoid arthritis with rheumatoid factor, unspecified
CPT/HCPCS: 72050; 73130; 73630

== ENCOUNTER 2025-04-06 07:00 | Outpatient (NON) | payer OTHER, SELFPAY ==
--- NOTE | 2025-04-06 | S_PTH ---
PATIENT: Gabe Rodríguez LOC: [facility] U#:[id number] AGE/SX: 54/F ROOM: RE04/06/[address]: Sathish Almendarez MD : 1970 BED: DIS: 04/06/2025 SPEC #: [id number] RECD: 04/07/25 09:01 STATUS: TATI REJin #: [id number] ANAHI: 04/06/25 00:[address]: Sathish Almendarez DEPT: [facility] Surgical RECD BY: Kate Nuñez ENTERED: 04/07/25 09:02 SP TYPE: Surgical OTHR DR: Komal Austin, BRICK SETTER OPERATOR-C Tissues: A - Foreign Body Procedures: Gross Exam Level 1
--- OUTSIDE RECORDS SUMMARY | 2025-04-07 08:29 | XMS_ITS | Referral Summary ---
Author Organization [facility] Address [facility] [place] [address] Care Team Providers Care Vocational Rehabilitation Consultant Name Role Phone Eric Boyce MD Primary Care Provider [phone] Encounters Date Type Department Care Team Description 03/27/2025 9:20 AM CDT Office Visit [facility] Rheumatology [address] [place] [address] 5th [place] [address] Kristin Nance MD Seropositive rheumatoid arthritis (HCC) (Primary Dx); High risk medication use; Preoperative clearance; Vitamin D deficiency; Mass of breast, unspecified laterality 03/08/2025 Orders Only [facility] Rheumatology [address] [place] [address] [place] [phone] Kristin Nance MD Seropositive rheumatoid arthritis (HCC) (Primary Dx); High risk medication use; Elevated LFTs 03/08/2025 Results Follow-Up [facility] Rheumatology [address] [place] [address] [place] [address] Kristin Nance MD CBC with auto differential, [...] by mouth daily 03/04/20 22 025 Discontinued Active Problems Problem Noted Date Diagnosed Date Migraine with aura 05/09/2014 Overview (01/29/2017): [facility] MIGRNE WO [facility] MGRN Calculus of kidney 03/11/2014 Overview [...] on file Legal Sex Female 11:32 PM ACADEMIC PHYSICIAN Gender Identity Female 04/02/2021 7:34 AM CDT [...] EXTERNAL LAB from Last 3 Months Insurance [facility] Member Subscriber Plan / Payer (Ef fective 2018-Present) Name:Nirali Rodríguez Relation to Subscriber:Self Name:Nirali Rodríguez Payer ID:[id number] (NAIC) Group ID:Not on file Type:MEDICAID RISK OTHER Address: [address] [facility] [place] Care Teams Vocational Rehabilitation Consultant Relationship Specialty Start Date End Date Eric Boyce MD [address] [place] [address] [address] [place] [id number] PCP - General Family Practice 02/19/18
--- OUTSIDE RECORDS SUMMARY | 2025-04-07 08:29 | XMS_ITS | Clinical Summary ---
Author Organization [facility] Address [address] [place] [address] Care Team Providers Care Legal Intern Name Role Phone Eric Boyce MD Primary Care Provider [phone] Allergies Active Allergy Reactions Criticality Noted Date [...] with aura 05/09/2014 Overview (01/29/2017): [facility] MIG[facility]NE WO [facility] MGRN Calculus of kidney 03/11/2014 Overview (01/29/2017): [facility] Seropositive rheumatoid arthritis 03/11/2014 Overview (01/29/2017): SEROPOSITIVE RHEUMATOID ARTHRITIS Closed fracture of bone 09/10/2012 Arthralgia of elbow 05/21/2011 Encounters Date Type Department Care Team Description 03/27/2025 9:20 AM CDT Office Visit [facility] Rheumatology [address] [place] [address] [place] [address] Kristin Nance MD Seropositive rheumatoid arthritis (HCC) (Primary Dx); High risk medication use; Preoperative clearance; Vitamin D deficiency; Mass of breast, unspecified laterality 03/08/2025 Orders Only [facility] Rheumatology [address] [place] [address] [place] [address] Kristin Nance MD Seropositive rheumatoid arthritis (HCC) (Primary Dx); High risk medication use; Elevated LFTs 03/08/2025 Results Follow-Up [facility] Rheumatology [address] [place] [address] [place] [address] Kristin Nance MD CBC with auto differential, [...] on file Legal Sex Female 11:32 PM BEAMING INSPECTOR Gender Identity Female 04/02/2021 7:34 AM [...] EXTERNAL LAB from Last 3 Months Insurance [facility] Care Teams Legal Intern Relationship Specialty Start Date End Date Eric Boyce MD [address] [place] [address] [place] [address] PCP - General Family Practice 02/19/18
--- OUTSIDE RECORDS SUMMARY | 2025-04-07 08:29 | XMS_ITS | Encounter Summary ---
Author Organization 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
--- OUTSIDE RECORDS SUMMARY | 2025-04-07 08:29 | XMS_ITS | Encounter Summary ---
Author Organization [facility] Address [address] [place] [address] Phone Care Team Providers Care Stock Parts Fabricator Name Role Phone Eric Boyce MD Primary Care Provider [phone] Encounter Details Date Type Department Care Team (Latest Contact Info) Description 03/08/2025 Results Follow-Up [facility] Rheumatology [address] [facility] Medicine 5th [place] [address] [place] [address] Kristin Nance MD [address] [place] [address] CBC with auto differential, Comprehensive metabolic panel Social History Tobacco Use Types Packs/Day Years Used Date Smoking Tobacco: Former Smokeless Tobacco: Never Comments Unknown Sex and Gender Information Value Date Recorded Sex Assigned at Not on file 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
--- OUTSIDE RECORDS SUMMARY | 2025-04-07 08:29 | XMS_ITS | Encounter Summary ---
Author Organization [facility] Address [address] [place] [address] Phone Care Team Providers Care Floor Service Worker Spring Name Role Phone Eric Boyce MD Primary Care Provider [phone] Encounter Details Date Type Department Care Team (Late st Contact Info) Description 10/24/2019 Orders Only [facility] Scanning, Provider Social History Tobacco Use Types Packs/Day Years Used Date Smoking Tobacco: Former Comments Unknown Sex and Gender Information Value Date Recorded Sex Assigned at Not on file 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
== END 2025-04-06 07:01 | disposition home or self-care (01) ==
LOC: ANHLAB 04-07 08:27
PROVIDERS: PCP Nurse Practitioner; Visit Provider Plastic Surgery
DX: S60.551A Superficial foreign body of right hand, initial encounter (principal); W45.8XXA Other foreign body or object entering through skin, initial encounter
CPT/HCPCS: 88300

== ENCOUNTER 2025-04-06 10:00 | Day surgery (SDC) | payer OTHER, SELFPAY ==
[2025-04-04 12:15] VITALS: BMI 21.7
--- NOTE | 2025-04-06 06:59 | WPDANESEPPF ---
Anes - Initial Pre Proc Eval Procedure: Operation Date: 04/06/25 11:30 Proposed Procedures p Foreign Body Removal Right Hand - Sathish Almendarez MD Date/Time: 04/06/25 06:59 Surgeon: Sathish Almendarez MD Pre Op Diagnosis: Superficial Foreign Body Right Hand Patient Data Age: 54 Gender: F Height: 1.65 m Weight: 59.4 kg Allergies Allergy/AdvReac Type Severity Reaction Status Date / Time adhesive tape Allergy Mild Rash Verified 04/06/25 10:20 Home Medications ?Medication ?Instructions ?Recorded ?Confirmed ?Type adalimumab 40 mg/0.8 mL 40 mg subcut WEEKLY 03/04/22 04/06/25 History subcutaneous syringe kit (Humira) methotrexate sodium 2.5 mg tablet 15 mg PO WEEKLY 03/04/22 04/06/25 History sumatriptan succinate 50 mg tablet 50 mg PO DAILY PRN Migraine 03/04/22 04/06/25 History Headache estradiol-norethindrone acet 0.5 1 tablet PO DAILY 03/19/25 04/06/25 History mg-0.1 mg tablet folic acid 1 mg tablet 1 mg PO DAILY 03/19/25 04/06/25 History tramadol 50 mg tablet 50 mg PO Q6H PRN pain #8 tabs 04/06/25 Rx Patient hx anesthesia problems: none Family hx anesthesia problems: none Results Review: All pre-operative results and documents have been reviewed as part of the pre-operative evaluation. [facility] Past Medical History Medical History Vaginal discharge History of endometrial biopsy (05/13/07) hscope EMB Miscarriage (03/11/02) Rheumatoid arthritis Uterine fibroid Migraines HSV-2 seropositive Recurrent cold sores Shingles Surgical History Surgical History History of adenoidectomy History of elbow surgery (~2010) secondary to RA History of bladder suspension procedure (~2008) History of endometrial ablation (05/27/07) hscope endometrial ablation--dysmenorrhea/menometrorrhagia History of dilation and curettage (03/11/02) suction d&c--miscarriage History of tubal ligation (~2002) History of 1988 2002 Family History Family History Father Hypertension Depression Mother Hypertension Other Colon polyp maternal aunt Sibling Depression Grandparent Cerebrovascular accident Social History Social History Smoking status: Former smoker Tobacco type: cigarettes Second hand tobacco smoke exposure: Yes Alcohol intake: current Drinks per week: 5 Substance use: never Substance use type: does not use Do You Feel Safe in your Home?: Yes Lack of Transportation: No Lack of Food: Never True Current Housing: I Have Housing Concerned About Future Housing: No Difficulty Paying Gas/Electric Bills: No Difficulty Paying for Meds: No Currently Unemployed: No Education: Trade/Vocational Certificate Difficulty w/ Childcare or Family Care: No Living arrangements: with family Additional living arrangements comments: Occupation/Education: occupation Additional occupation/education comments: real estate Gender identity (if verbalized by the patient): Female Sexual Orientation (if Verbalized by the Patient): Straight or Heterosexual Spiritual care concerns: No Anes - Eval Final PreProcedure Day of Procedure 04/06/25 06:59 Patient weight: normal Heart: regular rate and rhythm Lungs: clear to auscultation and normal air movement Airway: Mallampati scale class II Neurological: alert and oriented Last oral intake: >/= 8 hours ASA classification: II Emergent: no Anesthetic plan: proceed Anesthesia type and monitoring: general GIVS and standard monitoring Results Review: All pre-operative results and documents have been reviewed as part of the pre-operative evaluation. Informed Consent: The patient's anesthetic plan and its attendant risks and benefits were discussed with the patient/family/POA. Questions were solicited and answers provided to the satisfaction of the patient/family/POA.
--- NOTE | 2025-04-06 07:03 | WPDHPUPDATE1 ---
History and Physical Update Update Date/Time: 04/06/25 07:03 Patient seen and examined in pre-operative holding area. No interval change in medical history or symptoms. Patient recalls previous discussion of benefits and alternatives to procedure. Continues to desire to proceed with exploration and removal right palmar foreign body. Reviewed procedure, post-op expectations and risks including but not limited to bleeding, infection, injury to tendon/nerve/vessel, decreased hand function, stiffness, RSD, no change or worsening of symptoms. I discussed the possible use of assistants and their participation in the case. Patient stated understanding and signed the consent form wishing to proceed.
--- NOTE | 2025-04-06 07:04 | W.PM.PROC2 ---
Procedure Note - Detailed Date of Procedure 04/06/25 Pre-op Diagnosis Foreign Body Right Hand Post-op Diagnosis Same Procedure Performed exploration and removal right palm foreign body Surgeon Sathish Almendarez MD Air Route Controller enrique genao pa-c Anesthesia MAC Description of Procedure INFORMED CONSENT: The patient was seen and examined and marked in the pre-op area.? The patient signed the consent form. PROCEDURE IN DETAIL:The patient taken back to OR on the stretcher in supine position. Time out performed with anesthesia, surgeon and staff agreeing on patient's name site and surgery to be performed SCDs were placed on the lower extremities and inflated. A tourniquet was placed on {right} upper extremity and antibiotics given IV After anesthesia administered sedation I injected {5}cc 1%lido with epi and 0.5% marcaine plain at the operative site The?{right upper extremity}?was prepped and draped in sterile fashion the??{right upper extremity} was? exsanguinated proximal to foreign body with Esmarch bandage and tourniquet inflated to 250mmHg Using a 15 blade scalpel I proceeded with making a Elli incision over the area of the suspected mass through skin and dermis with a 15 blade scalpel. Littler scissors were used to spread through subcutaneous tissue elevating the skin flap. I Identified the tract of the foreign body near the entry point in the skin and was able dissect around this tract from radial to ulnar direction and remove remove the foreign body which was actualy in two pieces and approximately 3cm in length total. This larger piece was imbedded and dissected out from the deeper tissue close to the radial neurovascular bundle just above the instrinsic muscle between index and middle metacarpal. The neurovascular bundle identified in area of dissection of the foreign body appeared intact. I irrigated with normal saline and closed with 4-0 chromic. A dressing of xeroform, 4x4, yohana, and magdiel bandage was applied after the tourniquet was let down noting the hand was warm and well perfused. The patient was then awaken from anesthesia and transferred to the recovery room in stable condition.? Complications - none EBL- 0cc Disposition - home in stable conditions enrique genao pa-c was essential for positioning, retraction, closure and dressing placement [facility] [place] Surgery - Charge Forward: Surgery Billing ( and same for enrique adding )
[2025-04-06 10:30] VITALS: BP 131/89; PULSE 69; RESP 18; TEMP 37.2; O2SAT 100
[2025-04-06] MEDS: LACTATED RINGERS 1,000 ML 30 ML IV CONT (10:45)
--- OUTSIDE RECORDS SUMMARY | 2025-04-06 10:54 | XMS_ITS | Encounter Summary ---
Author Organization [facility] Address [address] [place] [address] Phone Care Team Providers Care Tomato Pulper Operator Name Role Phone Eric Boyce MD Primary Care Provider [phone] Encounter Details Date Type Department Care Team (Late st Contact Info) Description 07/22/2024 Orders Only [facility] Scanning, Provider Social History Tobacco Use Types Packs/Day Years Used Date Smoking Tobacco: Former Smokeless Tobacco: Never Comments Unknown Sex and Gender Information Value Date Recorded Sex Assigned at Not on file Legal Sex Female 11:32 PM PHP MYSQL WEB DEVELOPER Gender Identity Female 04/02/2021 7:34 AM CDT [...] on filedocumented in this encounter Care Teams Tomato Pulper Operator Relationship Specialty Start Date End Date Eric Boyce MD [address] [place] [address] [place] [address] PCP - General Family Practice 02/19/18 documented as of this encounter
--- OUTSIDE RECORDS SUMMARY | 2025-04-06 10:54 | XMS_ITS | Encounter Summary ---
Author Organization [facility] Address [address] [place] [address] Phone Care Team Providers Care Area Plant Manager Name Role Phone Eric Boyce MD Primary Care Provider [phone] Encounter Details Date Type Department Care Team (Latest Contact Info) Description 03/08/2025 Results Follow-Up [facility] Rheumatology [address] [facility] Medicine 5th [place] [address] [place] [address] Kristin Nance MD [address] [place] [address] CBC with auto differential, Comprehensive metabolic panel Social History Tobacco Use Types Packs/Day Years Used Date Smoking Tobacco: Former Smokeless Tobacco: Never Comments Unknown Sex and Gender Information Value Date Recorded Sex Assigned at Not on file Legal Sex Female 11:32 PM HOT REPAIRMAN Gender Identity Female 04/02/2021 7:34 AM CDT Sexual Orientation Straight 04/02/2021 7: 34 AM CDT documented as of this encounter Plan of Treatment Not on file documented as of this encounter Visit Diagnoses Not on filedocumented in this encounter Care Teams Area Plant Manager Relationship Specialty Start Date End Date Eric Boyce MD [address] [place] [address] [place] [address] PCP - General Family Practice 02/19/18 documented as of this encounter
--- OUTSIDE RECORDS SUMMARY | 2025-04-06 10:54 | XMS_ITS | Encounter Summary ---
Author Organization [facility] Address [address] [place] [address] Phone Care Team Providers Care Senior Sustainability Consultant Name Role Phone Eric Boyce MD Primary Care Provider [phone] Encounter Details Date Type Department Care Team (Late st Contact Info) Description 10/24/2019 Orders Only [facility] Scanning, Provider Social History Tobacco Use Types Packs/Day Years Used Date Smoking Tobacco: Former Comments Unknown Sex and Gender Information Value Date Recorded Sex Assigned at Not on file Legal Sex Female 11:32 PM SUPERVISOR INTERMEDIATES Gender Identity Female 04/02/2021 7:34 AM CDT [...] on filedocumented in this encounter Care Teams Senior Sustainability Consultant Relationship Specialty Start Date End Date Eric Boyce MD [address] [place] [address] [place] [address] PCP - General Family Practice 02/19/18 documented as of this encounter
--- OUTSIDE RECORDS SUMMARY | 2025-04-06 10:54 | XMS_ITS | Referral Summary ---
Author Organization [facility] Address [facility] [place] [address] Care Team Providers Care Pourer Metal Name Role Phone Eric Boyce MD Primary Care Provider [phone] Encounters Date Type Department Care Team Description 03/27/2025 9:20 AM CDT Office Visit [facility] Rheumatology [address] [place] [address] 5th [place] [address] Kristin Nance MD Seropositive rheumatoid arthritis (HCC) (Primary Dx); High risk medication use; Preoperative clearance; Vitamin D deficiency; Mass of breast, unspecified laterality 03/08/2025 Orders Only [facility] Rheumatology [address] [place] [address] [place] [address] Kristin Nance MD Seropositive rheumatoid arthritis (HCC) (Primary Dx); High risk medication use; Elevated LFTs 03/08/2025 Results Follow-Up [facility] Rheumatology [address] [place] [address] [place] [address] Kristin Nance MD CBC with auto differential, [...] Date Migraine with aura 05/09/2014 Overview (01/29/2017): [facility] MIGRNE WO [facility] MGRN Calculus of kidney 03/11/2014 Overview (01/29/2017): [...] on file Legal Sex Female 11:32 PM PLATER HELPER Gender Identity Female 04/02/2021 7:34 AM CDT [...] EXTERNAL LAB from Last 3 Months Insurance [facility] [place] Care Teams Pourer Metal Relationship Specialty Start Date End Date Eric Boyce MD [address] [place] [address] [place] [address] PCP - General Family Practice 02/19/18
--- OUTSIDE RECORDS SUMMARY | 2025-04-06 10:54 | XMS_ITS | Clinical Summary ---
Author Organization [facility] Address [address] [place] [address] Care Team Providers Care Certified Nurse Name Role Phone Eric Boyce MD Primary Care Provider [phone] Allergies Active Allergy Reactions Criticality Noted Date [...] Date Migraine with aura 05/09/2014 Overview (01/29/2017): [facility] M[facility]RNE WO [facility] MGRN Calculus of kidney 03/11/2014 Overview (01/29/2017): [facility] Seropositive rheumatoid arthritis 03/11/2014 Overview (01/29/2017): SEROPOSITIVE RHEUMATOID ARTHRITIS Closed fracture of bone 09/10/2012 Arthralgia of elbow 05/21/2011 Encounters Date Type Department Care Team Description 03/27/2025 9:20 AM CDT Office Visit [facility] Rheumatology [address] [place] [address] [place] [address] Kristin Nance MD Seropositive rheumatoid arthritis (HCC) (Primary Dx); High risk medication use; Preoperative clearance; Vitamin D deficiency; Mass of breast, unspecified laterality 03/08/2025 Orders Only [facility] Rheumatology [address] [place] [address] [place] [address] Kristin Nance MD Seropositive rheumatoid arthritis (HCC) (Primary Dx); High risk medication use; Elevated LFTs 03/08/2025 Results Follow-Up [facility] Rheumatology [address] [place] [address] [place] [phone] Kristin Nance MD CBC with auto differential, [...] on file Legal Sex Female 11:32 PM AVIATION SAFETY INSPECTOR Gender Identity Female 04/02/2021 7:34 AM CDT [...] EXTERNAL LAB from Last 3 Months Insurance [facility] Care Teams Certified Nurse Relationship Specialty Start Date End Date Eric Boyce MD [address] [place] [address] [place] [address] PCP - General Family Practice 02/19/18
[2025-04-06] MEDS: ceFAZolin SODIUM 2 GM/20 ML SW SYRINGE IV PUSH (12:29)
[2025-04-06] MEDS: LIDO 1%/EPINEPHRINE 1:100,000 10 ML VIAL 3 ML INFILTRATE (12:37)
[2025-04-06] MEDS: BUPivacaine HCL 0.5% PF 30 ML VIAL INFILTRATE (12:38)
[2025-04-06 12:49] VITALS: BP 114/80; PULSE 72; RESP 16; O2SAT 98
[2025-04-06 13:05] VITALS: BP 110/70; PULSE 76; RESP 16; O2SAT 98
--- NOTE | 2025-04-06 13:12 | WPDANESPN ---
Anes - Prog Note Post-Op Date/Time: 04/06/25 13:12 Cardiovascular status: normal Respiratory status: normal Airway patency: baseline Mental status: baseline Post-Op hydration status: normal Vital Signs: Last Vital Signs Temp 37.2 C 04/06/25 10:30 Pulse 76 04/06/25 13:05 Resp 16 04/06/25 13:05 BP 110/70 04/06/25 13:05 Pulse Ox 98 04/06/25 13:05 O2 Del Method Room Air 04/06/25 13:05 Pain Score (VAS): 0 I/O: Intake & Output 04/05/25 04/06/25 04/06/25 23:59 07:59 15:59 Intake Total 0 Balance 0 Post-procedural complaints: none Patient Feedback: Patient satisfied with anesthetic care. Other Findings: Patient vital signs back to baseline. Patient denies nausea and vomiting. Patient's pain under control. Patient OK for discharge.
[2025-04-06 13:20] VITALS: BP 111/78; PULSE 68; RESP 16; O2SAT 99
== END 2025-04-06 13:30 | disposition home or self-care (01) ==
LOC: ASC 10:02
PROVIDERS: PCP Nurse Practitioner; Visit Provider Plastic Surgery
PROC: (CPT 20525; principal; 2025-04-06 11:30)
DX: S61.441A Puncture wound with foreign body of right hand, initial encounter (principal); W45.8XXA Other foreign body or object entering through skin, initial encounter
CPT/HCPCS: 20525

== ENCOUNTER 2025-04-25 00:45 | Day surgery (SDC) | payer OTHER, SELFPAY ==
[2025-04-19 10:34] VITALS: BMI 21.6
--- NOTE | 2025-04-19 10:35 | PC.NURSE ---
Report to the Outpatient Waiting Room, entrance under the green pavilion located off [facility], at time _0600_ on date _[id number]_. Planned Procedure Time: _0730_.? Time changes happen often and if your time is changed the preop area will call you the afternoon before. - You and your visitor will be asked to self-screen and do not enter if you have any COVID symptoms. Please call surgeon if you need to reschedule. - A mask is optional within the hospital at this time. Patients may have clear liquids (water, carbonated beverages, clear teas, apple juice) until 3 hours prior to surgery with a maximum of 20 ounces. - No food from midnight until time of surgery and no smoking, or chewing tobacco (or any form of nicotine). No chewing gum, candy or mints. Take only the following medications with a SIP of water on the morning of surgery: __None____ DO NOT STOP ANY OF YOUR OTHER PRESCRIPTION MEDICATIONS PRIOR TO SURGERY EXCEPT THE FOLLOWING Hold all vitamins and supplements for 3 days per anesthesiologist. Medications to discontinue per physician Date to take last dose____ Please no make-up, nail sami, hairspray, perfume, deodorant, or body powder the day of surgery.? No jewelry (including any body piercings) or valuables the day of surgery, leave them at home.? Please take a shower or bath the night before, or the morning of, surgery with an antibacterial soap.? Wear comfortable, loose fitting clothing.? - Jewelry must be removed prior to entering the operating room.? Rings and piercings that are not removed may be cut off. - The hospital will not accept responsibility for valuables.? - Please leave all valuables, including medications, at home the day of surgery. If you are going home after surgery, a licensed special needs bus driver must drive you home.? - NO public transportation without another adult if you receive anesthesia. - We recommend that an adult stay with you for 24 hours following discharge. - We also recommend that you do not drive, make important decision, drink alcoholic beverages, or take any drugs that were not prescribed by your health care provider for at least 24 hours after your discharge time. Follow any additional instructions given to you from your surgeon. Telephone instructions given to __Gabe__and asked if any additional questions and then verbalized understanding. Patient advised to call surgeon office or pre surgery nurse liaison [phone] if any additional questions.
[2025-04-25] VITALS (9 sets, daily range): BP systolic 108–141; BP diastolic 60–89; PULSE 62–85; RESP 14–18; TEMP 36.4–37.2; O2SAT 97–100
--- NOTE | ~2025-04-25 | MM_ITS ---
EXAMINATION: MM_[id number]_MG INDICATION: Left breast lumpectomy TECHNIQUE: 2 specimen radiographs are submitted for review. COMPARISON: None available FINDINGS: The biopsy marker and magseed are contained within the specimen radiographs. IMPRESSION: 1. Biopsy marker and magseed within the specimen radiographs. Reviewed, dictated and finalized at location .
--- OUTSIDE RECORDS SUMMARY | 2025-04-25 00:51 | XMS_ITS | Encounter Summary ---
Author Organization [facility] Address [address] [place] [address] Phone Care Team Providers Care Traffic Survey Technician Name Role Phone Eric Boyce MD Primary Care Provider [phone] Encounter Details Date Type Department Care Team (Late st Contact Info) Description 07/22/2024 Orders Only [facility] Scanning, Provider Social History Tobacco Use Types Packs/Day Years Used Date Smoking Tobacco: Former Smokeless Tobacco: Never Comments Unknown Sex and Gender Information Value Date Recorded Sex Assigned at Not on file 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
--- OUTSIDE RECORDS SUMMARY | 2025-04-25 00:51 | XMS_ITS | Encounter Summary ---
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
--- OUTSIDE RECORDS SUMMARY | 2025-04-25 00:51 | XMS_ITS | Referral Summary ---
Author Organization [facility] Address [facility] [place] [address] Care Team Providers Care Resident Buyer Name Role Phone Eric Boyce MD Primary Care Provider [phone] Encounters Date Type Department Care Team Description 03/27/2025 9:20 AM CDT Office Visit [facility] Rheumatology [address] [place] [address] 5th [place] [address] Kristin Nance MD Seropositive rheumatoid arthritis (HCC) (Primary Dx); High risk medication use; Preoperative clearance; Vitamin D deficiency; Mass of breast, unspecified laterality 03/08/2025 Orders Only [facility] Rheumatology [address] [place] [address] [place] [address] Kristin Nance MD Seropositive rheumatoid arthritis (HCC) (Primary Dx); High risk medication use; Elevated LFTs 03/08/2025 Results Follow-Up [facility] Rheumatology [address] [place] [address] [place] [address] Kristin Nance MD CBC with auto differential, [...] Date Migraine with aura 05/09/2014 Overview (01/29/2017): [facility] MIGRNE WO [facility] MGRN Calculus of kidney 03/11/2014 Overview [...] on file 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
--- OUTSIDE RECORDS SUMMARY | 2025-04-25 00:51 | XMS_ITS | Encounter Summary ---
Author Organization [facility] Address [address] [place] [address] Phone Care Team Providers Care Water Pipe Installer Name Role Phone Eric Boyce MD Primary Care Provider [phone] Encounter Details Date Type Department Care Team (Latest Contact Info) Description 03/08/2025 Results Follow-Up [facility] Rheumatology [address] [facility] Medicine 5th [place] [address] [place] [address] Krisitn Nance MD [address] [place] [address] CBC with auto differential, Comprehensive metabolic panel Social History Tobacco Use Types Packs/Day Years Used Date Smoking Tobacco: Former Smokeless Tobacco: Never Comments Unknown Sex and Gender Information Value Date Recorded Sex Assigned at Not on file 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
--- OUTSIDE RECORDS SUMMARY | 2025-04-25 00:51 | XMS_ITS | Clinical Summary ---
Author Organization [facility] Address [address] [place] [address] Care Team Providers Care Client Architect Name Role Phone Eric Boyce MD Primary Care Provider [phone] Allergies Active Allergy Reactions Criticality Noted Date [...] Description 03/27/2025 9:20 AM CDT Office Visit [facility] Rheumatology [address] [place] [address] [place] [address] Kristin Nance MD Seropositive rheumatoid arthritis (HCC) (Primary Dx); High risk medication use; Preoperative clearance; Vitamin D deficiency; Mass of breast, unspecified laterality 03/08/2025 Orders Only [facility] Rheumatology [address] [place] [address] [place] [address] Kristin Nance MD Seropositive rheumatoid arthritis (HCC) (Primary Dx); High risk medication use; Elevated LFTs 03/08/2025 Results Follow-Up [facility] Rheumatology [address] [place] [address] [place] [address] Kristin Nance MD CBC with auto differential, [...] on file 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
[2025-04-25] MEDS: ACETAMINOPHEN 500 MG TABLET 1000 MG PO (07:40)
[2025-04-25] MEDS: LACTATED RINGERS 1,000 ML 30 ML IV CONT (07:45)
--- NOTE | 2025-04-25 07:45 | WPDANESEPPF ---
Anes - Initial Pre Proc Eval Procedure: Operation Date: 04/25/25 09:00 Proposed Procedures p Left Breast Lumpectomy with Mag Seed Localization, Possible Adjacent Tissue Transfer - Nohelia Le MD Date/Time: 04/25/25 07:45 Surgeon: Nohelia Le MD Pre Op Diagnosis: unspec lump left breast Patient Data Age: 54 Gender: F Height: 1.65 m Weight: 59 kg Allergies Allergy/AdvReac Type Severity Reaction Status Date / Time adhesive tape Allergy Mild Rash Verified 04/25/25 07:43 Home Medications ?Medication ?Instructions ?Recorded ?Confirmed ?Type adalimumab 40 mg/0.8 mL 40 mg subcut WEEKLY 03/04/22 04/25/25 History subcutaneous syringe kit (Humira) methotrexate sodium 2.5 mg tablet 15 mg PO WEEKLY 03/04/22 04/25/25 History sumatriptan succinate 50 mg tablet 50 mg PO DAILY PRN Migraine 03/04/22 04/19/25 History Headache estradiol-norethindrone acet 0.5 1 tablet PO DAILY 03/19/25 04/25/25 History mg-0.1 mg tablet folic acid 1 mg tablet 1 mg PO DAILY 03/19/25 04/25/25 History tramadol 50 mg tablet 50 mg PO Q6H PRN pain #8 tabs 04/06/25 04/19/25 Rx Patient hx anesthesia problems: none Family hx anesthesia problems: none Results Review: All pre-operative results and documents have been reviewed as part of the pre-operative evaluation. [facility] Past Medical History Medical History Vaginal discharge History of endometrial biopsy (05/13/07) hscope EMB Miscarriage (03/11/02) Rheumatoid arthritis Uterine fibroid Migraines HSV-2 seropositive Recurrent cold sores Shingles Surgical History Surgical History History of adenoidectomy History of elbow surgery (~2010) secondary to RA History of bladder suspension procedure (~2008) History of endometrial ablation (05/27/07) hscope endometrial ablation--dysmenorrhea/menometrorrhagia History of dilation and curettage (03/11/02) suction d&c--miscarriage History of tubal ligation (~2002) History of 1988 2002 Family History Family History Father Hypertension Depression Mother Hypertension Other Colon polyp maternal aunt Sibling Depression Grandparent Cerebrovascular accident Social History Social History Years smoked: 8 Smoking status: Former smoker Tobacco type: cigarettes Second hand tobacco smoke exposure: Yes Smoking end date: 04/19/99 Alcohol intake: current Drinks per week: 5 Substance use: never Substance use type: does not use Do You Feel Safe in your Home?: Yes Lack of Transportation: No Lack of Food: Never True Current Housing: I Have Housing Concerned About Future Housing: No Difficulty Paying Gas/Electric Bills: No Difficulty Paying for Meds: No Currently Unemployed: No Education: Trade/Vocational Certificate Difficulty w/ Childcare or Family Care: No Living arrangements: with family Additional living arrangements comments: Occupation/Education: occupation Additional occupation/education comments: real estate Gender identity (if verbalized by the patient): Female Sexual Orientation (if Verbalized by the Patient): Straight or Heterosexual Spiritual care concerns: No Anes - Eval Final PreProcedure Day of Procedure 04/25/25 07:45 Patient weight: normal Heart: regular rate and rhythm Lungs: clear to auscultation Airway: Mallampati scale class II Neurological: alert and oriented Last oral intake: >/= 8 hours ASA classification: III Emergent: no Anesthetic plan: proceed Anesthesia type and monitoring: general LMA and standard monitoring Results Review: All pre-operative results and documents have been reviewed as part of the pre-operative evaluation. Informed Consent: The patient's anesthetic plan and its attendant risks and benefits were discussed with the patient/family/POA. Questions were solicited and answers provided to the satisfaction of the patient/family/POA.
--- NOTE | 2025-04-25 08:17 | WPDHPUPDATE1 ---
History and Physical Update Update Date/Time: 04/25/25 08:17 - Left breast lumpectomy with magseed localization, possible adjacent tissue transfer. History and Physical has been reviewed, including an updated exam of the patient. There are NO changes in the patient's condition. Risks, benefits, and alternatives have been discussed and questions answered. Patient agrees to proceed with procedure.
[2025-04-25] MEDS: ceFAZolin 2 GM/D5W 50 ML 2 GM/50 ML BAG IVPB (08:35)
--- NOTE | 2025-04-25 09:26 | S_PTH ---
PATIENT: Gabe Rodríguez LOC: [facility] U#:[id number] AGE/SX: 54/F ROOM: RE04/25/[address]: Nohelia Le MD : 1970 BED: DIS: 04/25/2025 SPEC #: [id number] RECD: 04/25/25 09:37 STATUS: TATI REJin #: [id number] ANAHI: 04/25/25 09:[address]: Nohelia Le DEPT: [facility] Surgical RECD BY: Mary Putnam ENTERED: 04/25/25 09:37 SP TYPE: Surgical OTHR DR: Komal Austin, WEIGHT SHIFTER-C Tissues: A - Breast Lumpectomy Procedures: Hematoxylin and Eosin Stain Gross and Microscopic Level 5
--- NOTE | 2025-04-25 09:36 | SUR.OPER ---
specimen given to MYRON Melgoza. Received in lab at [id number]
--- NOTE | 2025-04-25 09:47 | W.PM.PROC2 ---
Procedure Note - Detailed Date of Procedure 04/25/25 Pre-op Diagnosis Left breast mass, at 1 o'clock position 6 cm from the nipple Post-op Diagnosis Same Procedure Performed Left breast lumpectomy with magseed localization Surgeon Nohelia Le MD Anesthesia General Description of Procedure Patient was identified in the pre-operative area and brought to the OR suite. She underwent tumor localization previously by IR with magseed placement. She was laid supine in the operating table and sequential compression devices were applied. General anesthesia was induced without difficulties. The left chest was prepped and draped in a sterile fashion. The sentimag probe was used to identify the area where the magseed was placed and a superior periareolar incision was made. Dissection was carried down through the subcutaneous tissue into the breast tissue. The mass was identified with palpation and using sentimag probe, and a rim of normal breast tissue was excised along with the mass as our lumpectomy specimen. Once the specimen was completely excised, it was oriented using surgical paint according to transmitter tester instructions. The specimen was placed in the faxitron for radiographic confirmation of Tumor, biopsy marker and magseed within the center of specimen. Once the radiographic confirmation was received, the wound was irrigated with saline and hemostasis was assured. The deep dermal layer was approximated using interrupted 3-0 vicryl followed by 4-0 monocryl for the skin. Dermabond was applied followed by a surgical bra. Patient was awoken from anesthesia and taken to the recovery area in stable condition. All needles, instruments and sponge counts were correct as reported by the operating room staff. Patient tolerated the procedure well with no immediate complications. Estimated Blood Loss 10 Pathology Yes Complications No immediate complications Condition Stable Disposition PACU [facility] Billing Surgery - Charge Forward: Surgery Billing (CPT 21649)
--- NOTE | 2025-04-25 12:23 | SUR.PHASEII ---
DR. FITZGERALD'S OFFICE CALLED PER PATIENT REQUEST RE: FILLING MUSCLE RELAXANT SCRIPT TO SHORTY REEVES.
== END 2025-04-25 12:21 | disposition home or self-care (01) ==
PROVIDERS: PCP Nurse Practitioner; Visit Provider Surgery
PROC: (CPT 19301; principal; 2025-04-25 09:00)
DX: D24.2 Benign neoplasm of left breast (principal); N60.12 Diffuse cystic mastopathy of left breast; Z87.891 Personal history of nicotine dependence
CPT/HCPCS: 19301; 76098; 88307; A9270; J0690; J1100; J2003; J2250; J2405; J2704; J3010; J7120

== ENCOUNTER 2025-08-25 08:30 | Outpatient (RCR) | payer OTHER, SELFPAY ==
--- NOTE | 2025-06-29 16:42 | PTOPEVAL1 ---
Assessment and note entered by Celine Wright, PT Evaluation Information Assessment Status Evaluation Diagnosis M54.50, G89.29 ICD-10 Condition Codes (PT) Pain in low back M54.50,Weakness R53.1 Subjective Information Laying on left side hurts and rolling over jars hurts also. Has been progressing over a long time, but in the last 6 months has been disturbing her sleep. Pt denie's N/T or pain into legs. Replies feels tight States sits a lot for her job and is in her car. Works from home not at a desk, usually on her couch Reported Pain Level Pain Score 2: Self Report Assessment PT Clinical Summary Pt presents with complaints of pain in low back/ pelvis area that has persisted greater than six months. She is known to therapist from previous plan of cares one of which was related to pelvic and lumbar pain. She demonstrates leg length discrepancy L<R and reports she has not worn her lifts in a few months. Also does a lot of sitting for work, reports usually tucking her legs under her. Pt appears to have L downslip and possible sacral torsion, and weakness to lumbopelvic core musculature. Pt was educated on alternative postures for work related activities to promote equalized pelvic and lumbar alignment, and advised to return to shoe lift in left shoe for optimal alignment in standing to improve pain and meet goals. Pt will benefit from physical therapy in order to educate and encourage improved alignment with functional activities, improve core strength, and improve overall quality of life with less pain. Plan of Care Interventions Electrical Stimulation,Hot Pack/Cold Pack,Manual Therapy,Neuro Re-education,Patient/Caregiver Education,Therapeutic Activities,Therapeutic Exercise,Self-Care/Home Management,Ultrasound, Other Other Interventions Bracing PT Services Indicated Yes Treatment Frequency and 2x weekly x 16 visits Duration These treatments will address the objective and functional deficits as defined above. The patient will be advanced safely and appropriately in order for the patient to progress towards his/her prior level of function. Additional exercises will be introduced and as well as a comprehensive home exercise program upon discharge, if needed, ?to ensure carryover of functional gains achieved in the clinic. This treatment plan has been reviewed and agreement upon by the patient.
--- NOTE | 2025-06-29 16:43 | OPREHPOC ---
Outpatient Therapy Plan of Care This is a Multidisciplinary Plan of Care that may contain components documented by all disciplines (PT, OT, and ST.) PT Problem 1 PT Problem #1 Knowledge Deficit PT Goal 1 Goal / Goal Update Pt will be independent in HEP Pt will verbalize understanding of diagnosis and prognosis Target Visit 8 PT Goal 1 Goal / Goal Update Pt will report lowest pain rating at 0/10 to show improvement in overall discomfort Target Visit 8 PT Goal 2 Goal / Goal Update Pt will report greatest pain level at 2/10 or less to improve ADLs and activities Target Visit 16 PT Problem 3 PT Problem #3 Impaired Strength PT Goal 1 Goal / Goal Update Pt will demo core strength of 3+/5 of the TRAM to improve lumbopelvic stability Target Visit 8 PT Goal 2 Goal / Goal Update Pt will demo 4+/5 or greater strength in BLE to improve knee stability and kinematics with activities Target Visit 16
--- NOTE | 2025-07-14 08:10 | PCPTNOTE ---
Pt called to cx physical therapy appointment this date due to being sick.
--- NOTE | 2025-07-25 09:25 | PTOPPROG ---
Assessment and note entered by Celine Wright, PT Evaluation Information Assessment Status Progress Diagnosis M54.50, G89.29 ICD-10 Condition Codes (PT) Pain in low back M54.50,Weakness R53.1 Subjective Information Pt reports feels about the same. Not much improvement. Pt has changed where she is sitting for work and heel lift is in. Rolling over in bed is not as bad but certain moves in bed will feel a pull. left hip and back feels tight Noticed in shower and lifting leg, activity makes her aware is still there Assessment PT Clinical Summary Pt has attended 6 therapy sessions including evaluation. She reports not feeling much change but also reports lowest pain reducing from 2/10 to 0/10, and highest from 4/10 to 3/10. She reports is not waking up at night wiht rolling over anymore but notes still feels discomfort with activity and certain movements. Improved alignment noted today, cont to have mild sacral and inominate torsions that were addressed with muscle energy techniques. Pt's HEP was also updated. Pt will benefit from cont therapy to continue progression and meet pt overall goals to be pain- free. Plan of Care Interventions Electrical Stimulation,Hot Pack/Cold Pack,Manual Therapy,Neuro Re-education,Patient/Caregiver Education,Therapeutic Activities,Therapeutic Exercise,Self-Care/Home Management,Ultrasound, Other Other Interventions Bracing PT Services Indicated Yes Treatment Frequency and Cont 2x weekly x 8 visits Duration These treatments will address the objective and functional deficits as defined above. The patient will be advanced safely and appropriately in order for the patient to progress towards his/her prior level of function. Additional exercises will be introduced and as well as a comprehensive home exercise program upon discharge, if needed, ?to ensure carryover of functional gains achieved in the clinic. This treatment plan has been reviewed and agreement upon by the patient.
--- NOTE | 2025-08-25 09:25 | PTOPDC ---
Assessment and note entered by Celine Wright, PT Evaluation Information Assessment Status Discharge Diagnosis M54.50, G89.29 ICD-10 Condition Codes (PT) Pain in low back M54.50,Weakness R53.1 Subjective Information Pt reports feeling about the same as before, is feeling discouraged. Still feeling tight in left hip and low back. Yesterday was on her feet from 1-5pm was tired, lower back from standing. stretching in any direction will feel it, feeling the tension is movement related Will have 0/10 when doing nothing States she has purchased her SI belt and worn it around the house. States she feels more stable with it on. Reported Pain Level Pain Score 1: Self Report Assessment PT Clinical Summary Pt has attended therapy consistently for low back/ sacroiliac pain. While she reports feeling improved, the problem has not 100% resolved. She is able to have 0/10 at times with rest compared to initially lowest pain level being a 2/10. She also had her highest pain rating go from 4/10 to 2 /10. She reports still feeling tight in the left posterior hip and reports is with movement more than anything else. She has been provided her updated HEP to continue strengthening and maintenance of her progress. Pt appears to have met max benefit at this time for therapy and is thus being discharged and referred back to her primary care provider for further options. Plan of Care PT Services Indicated No
== END 2025-08-25 10:06 | disposition home or self-care (01) ==
LOC: ANHHIPT 08:30
PROVIDERS: PCP Nurse Practitioner; Visit Provider Nurse Practitioner
DX: M54.50 Low back pain, unspecified (principal); G89.29 Other chronic pain
CPT/HCPCS: 97014; 97035; 97110; 97140; 97162; 97530; 97750; G0283

== ENCOUNTER 2025-09-12 14:38 | Outpatient (CLI) | payer OTHER, SELFPAY ==
[2025-09-12 15:15] LABS: Hematocrit 40.4 % (37.0-47.0); Hemoglobin 13.6 g/dL (12.0-15.0); Immature Granulocyte Percent A 0.4 % (0-0.5); Lymphocytes Absolute Auto 2.23 K/mm3 (0.9-3.2); Mean Corpuscular HGB Conc 33.7 g/dl (32-36); Mean Corpuscular Hemoglobin 35.1 pg (26-34); Mean Corpuscular Volume 104.4 fl (80-100); Nucleated Red Blood Cells Absolute Auto 0.000 K/mm3 (0.0-0.012); Nucleated Red Blood Cells Perc 0.0 % (0.0-0.2); Platelet Count Result 258 k/mm3 (150-375); Red Blood Count 3.87 M/mm3 (4.2-5.4); White Blood Count 8.3 K/mm3 (4.5-10.0)
[2025-09-12 15:35] LABS: Alanine Aminotransferase 27 U/L (6-35); Albumin Level 4.4 g/dL (3.5-5.1); Alkaline Phosphatase 61 U/L (38-126); Anion Gap 7 mmol/L (4-12); Aspartate Amino Transferase 40 U/L (14-36); Bilirubin,Total 0.6 mg/dL (0.2-1.3); Blood Urea Nitrogen 14 mg/dL (7-17); Calcium 9.2 mg/dL (8.4-10.2); Carbon Dioxide 27 mmol/L (22-30); Chloride 102 mmol/L (98-107); Estimated Glomerular Filt Rate > 60; Glucose 88 mg/dL (65-110); Potassium 4.0 mmol/L (3.4-5.0); Sodium 136 mmol/L (137-145); Total Protein 7.9 g/dL (6.3-8.2)
== END 2025-09-12 14:39 | disposition home or self-care (01) ==
LOC: ANHLAB 14:41
PROVIDERS: PCP Nurse Practitioner; Visit Provider Internal Medicine Rheumatology
DX: Z79.899 Other long term (current) drug therapy (principal)
CPT/HCPCS: 36415; 80053; 85025